=== PATIENT | female | born 1940 | race Caucasian/White ===

== ENCOUNTER 2017-03-09 06:01 | Inpatient (IN) | payer MEDICARE ==
[~2017-03-09] VITALS: Ht 167.6 cm; Wt 61.2 kg
[2017-03-09] VITALS (17 sets, daily range): BP systolic 66–122; BP diastolic 37–91; PULSE 66–127; RESP 12–34; TEMP 94.4–102; O2SAT 92–100
[~2017-03-09 06:01] MED LIST: ALPR-138 PO; AMAR2TAB PO; CARA1SUS3 PO; ENAL5TAB98 PO; FLUO20SO3 PO; LORT5TAB PO; METO5TAB PO; PREV30CA36 PO; SITA100 PO; VIST50CA PO; ZOCO80TA PO
[2017-03-09] MEDS ORDERED: IOHEXOL 350 MG/ML 10 ML VIAL (for RAD DIAG) IVCONTRAST ONE (06:02)
[2017-03-09] MEDS ORDERED: SODIUM CHLOR 0.9% 1000 ML INJ 100 ML IV ONE (06:11)
[2017-03-09] MEDS ORDERED: SODIUM CHLOR 0.9% 1000 ML INJ 1,000 ML IV ONE ×3 (06:11→17:30)
[2017-03-09] MEDS ORDERED: GENTAMICIN INJ 325 MG in SODIUM CHLORIDE 0.9% INJ 100 ML IV STA (06:11)
[2017-03-09] MEDS ORDERED: AZTREONAM INJ 1,000 MG in SODIUM CHLORIDE 0.9% INJ 100 ML IV STA (06:11)
[2017-03-09] MEDS ORDERED: VANCOMYCIN INJ 1,000 MG in SODIUM CHLOR 0.9% 250 ML INJ 250 ML IV STA (06:11)
[2017-03-09] MEDS ORDERED: ACETAMINOPHEN 325 MG TAB PO ONE (06:15)
--- NOTE | 2017-03-09 06:33 | PD ---
HPI Chief Complaint: General Weakness Time Seen by Provider: 06:10 Travel History International Travel<30 days: No Contact w/Intl Traveler<30days: No Traveled to known affect area: No History of Present Illness HPI 76yo F with PMH of frequent UTIs, DM presents to the ED with c/o dysuria, fever , nausea, abdominal pain since yesterday. States her abdominal pain in bilateral lower abdomen and intermittent and hard to describe. Denies any chest pain, sob, headache, vomiting, hematuria, or diarrhea. Pt is hard of hearing but AAOx3. PFSH Past Medical History Anxiety: Yes Diminished Hearing: Yes (BILATERAL HEARING AIDS) Diverticulitis: Yes Gastrointestinal Disorders: Yes (GASTRITIS, HEMORRHOIDS) Genitourinary: Yes (UTI) Hypertension: Yes Tetanus Vaccination: Unknown Influenza Vaccination: No Menopausal: Yes Past Surgical History Cholecystectomy: Yes Social History Alcohol Use: No Tobacco Use: Yes (1 PPD) Substance Use: No Allergies-Medications (Allergen,Severity, Reaction): Coded Allergies: Influenza Virus Vaccines (Unverified Allergy, Severe, FLU LIKE REACTIO X 2 WEEKS, 03/09/17) aspirin (Unverified Allergy, Severe, STOMACH BROWN, 03/09/17) codeine (Unverified Allergy, Severe, VOMITS, 03/09/17) penicillin G (Unverified Allergy, Unknown, 03/09/17) Reported Meds & Prescriptions Reported Meds & Active Scripts Active Reported Zolpidem (Zolpidem Tartrate) 5 Mg Tab 5-10 Mg PO HS PRN Tradjenta (Linagliptin) 5 Mg Tab 5 Mg PO DAILY Simvastatin 20 Mg Tab 20 Mg PO HS Metformin (Metformin HCl) 500 Mg Tab 500 Mg PO BIDPC With meals Lisinopril 5 Mg Tab 5 Mg PO DAILY Glimepiride 2 Mg Tab 2 Mg PO BIDAC Alprazolam 0.5 Mg Tab 0.5 Mg PO BID PRN Review of Systems Except as stated in HPI: all other systems reviewed are Neg Physical Exam Narrative GENERAL: 76yo F in mild distress. SKIN: Focused skin assessment warm/dry. HEAD: Atraumatic. Normocephalic. EYES: Pupils equal and round. No scleral icterus. No injection or drainage. ENT: No nasal bleeding or discharge. Mucous membranes pink and moist. NECK: Trachea midline. No JVD. CARDIOVASCULAR: Tachycardic in the 120s. No murmur appreciated. RESPIRATORY: No accessory muscle use. Clear to auscultation. Breath sounds equal bilaterally. GASTROINTESTINAL: Abdomen soft, +TTP LLQ. No rebound tenderness or guarding. MUSCULOSKELETAL: No obvious deformities. No clubbing. No cyanosis. No edema. NEUROLOGICAL: Awake and alert. No obvious cranial nerve deficits. Motor grossly within normal limits. Normal speech. PSYCHIATRIC: Appropriate mood and affect; insight and judgment normal. Data Data Last Documented VS Vital Signs Date Time Temp Pulse Resp B/P (MAP) Pulse Ox O2 Delivery O2 Flow Rate FiO2 03/09/17 10:38 80 18 94/51 (65) 100 Nasal Cannula 2.00 03/09/17 09:41 98.5 Orders Orders Complete Blood Count With Diff (03/09/17 06:11) Comprehensive Metabolic Panel (03/09/17 06:11) Prothrombin Time / Inr (Pt) (03/09/17 06:11) Act Partial Throm Time (Ptt) (03/09/17 06:11) Lactic Acid Sepsis Protocol (03/09/17 06:11) Lipase (03/09/17 06:11) Urinalysis - C+S If Indicated (03/09/17 06:11) Blood Culture (03/09/17 06:11) Blood Glucose (03/09/17 06:11) Ecg Monitoring (03/09/17 06:11) Iv Access Insert/Monitor (03/09/17 06:11) Oximetry (03/09/17 06:11) Oxygen Administration (03/09/17 06:11) Acetaminophen (Tylenol) (03/09/17 06:15) Ct Abd/Pel W Iv Contrast(Rout) (03/09/17 06:11) Vancomycin Inj (Vancomycin Inj) (03/09/17 06:11) Sodium Chlor 0.9% 1000 Ml Inj (Ns 1000 M (03/09/17 06:11) Sodium Chlor 0.9% 1000 Ml Inj (Ns 1000 M (03/09/17 06:11) Sodium Chlor 0.9% 1000 Ml Inj (Ns 1000 M (03/09/17 06:11) Aztreonam Inj (Azactam Inj) (03/09/17 06:11) Gentamicin Inj (Gentamicin Inj) (03/09/17 06:11) Ondansetron Inj (Zofran Inj) (03/09/17 07:00) Urine Culture (03/09/17 06:30) Electrocardiogram (03/09/17 06:10) Iohexol 350 Inj (Omnipaque 350 Inj) (03/09/17 06:02) ^ Infusion (03/09/17 ) Norepinephrine-Dextrose Drip (Levophed-D (03/09/17 08:15) Lactic Acid Sepsis Protocol (03/09/17 08:02) Chest, Single Ap (03/09/17 08:52) Norepinephrine Inj (Levophed Inj) (03/09/17 08:51) Admit To Inpatient (03/09/17 ) Code Status (03/09/17 10:19) Vital Signs (Adult) ANA LAURA.Q1H (03/09/17 10:19) Activity Bed Rest (03/09/17 10:19) Elevate Head Of Bed (03/09/17 10:19) Neuro Checks . ORDERED (03/09/17 10:19) Pantoprazole Inj (Protonix Inj) (03/09/17 12:00) Albuterol-Ipratropium Neb (Duoneb Neb) (03/09/17 10:30) Albuterol-Ipratropium Neb (Duoneb Neb) (03/09/17 10:30) Complete Blood Count With Diff (03/10/17 04:00) Comprehensive Metabolic Panel (03/10/17 04:00) Rocket Engine Component Mechanic / Telemetry ANA LAURA.Q8H (03/09/17 10:19) Heparin Inj (Heparin Inj) (03/09/17 12:00) ^ Initiate Protocol (03/09/17 10:19) Instruction (03/09/17 10:19) [facility] [place] Nursing Information (03/09/17 10:30) Chlorhexidine 2% Cloth (Chlorhexidine 2% (03/10/17 04:00) Chlorhexidine 2% Cloth (Chlorhexidine 2% (03/09/17 10:30) Mrsa Pcr Surveillance (03/09/17 10:19) Docusate Sodium-Senna (Caty-Colace) (03/09/17 21:00) Magnesium Hydroxide Liq (Milk Of Magnesi (03/09/17 10:30) Sennosides (Senokot) (03/09/17 10:30) Bisacodyl Supp (Dulcolax Supp) (03/09/17 10:30) Lactulose Liq (Lactulose Liq) (03/09/17 10:30) Inpatient Certification (03/09/17 ) Aztreonam Inj (Azactam Inj) (03/09/17 17:00) Sodium Chlor 0.9% 1000 Ml Inj (Ns 1000 M (03/09/17 10:30) Blood Glucose Goal (Criteria) (03/09/17 10:19) Hypoglycemia 70 Mg/Dl Or < (03/09/17 10:19) Notify Dr: Other (03/09/17 10:19) Glucagon Inj (Glucagon Inj) (03/09/17 10:30) Insulin Human Reg Supp Scale (Novolin R (03/09/17 12:00) Consult Urology (03/09/17 ) (Hub Use Only)Inp Phy Cons/Ref (03/09/17 ) Admit Order (Ed Use Only) (03/09/17 10:49) Urinary Catheter Insert/Apply (03/09/17 10:51) Dextrose 50% In Kali (Syr) Inj (D50w (Syr (03/09/17 12:00) Labs Laboratory Tests Test 03/09/17 06:20 03/09/17 06:30 White Blood Count 13.9 TH/MM3 Red Blood Count 4.38 MIL/MM3 Hemoglobin 12.8 GM/DL Hematocrit 37.7 % Mean Corpuscular Volume 86.0 FL Mean Corpuscular Hemoglobin 29.2 PG Mean Corpuscular Hemoglobin Concent 34.0 % Red Cell Distribution Width 13.9 % Platelet Count 227 TH/MM3 Mean Platelet Volume 7.9 FL Neutrophils (%) (Auto) 87.2 % Lymphocytes (%) (Auto) 4.1 % Monocytes (%) (Auto) 8.1 % Eosinophils (%) (Auto) 0.0 % Basophils (%) (Auto) 0.6 % Neutrophils # (Auto) 12.1 TH/MM3 Lymphocytes # (Auto) 0.6 TH/MM3 Monocytes # (Auto) 1.1 TH/MM3 Eosinophils # (Auto) 0.0 TH/MM3 Basophils # (Auto) 0.1 TH/MM3 CBC Comment DIFF FINAL Differential Comment Prothrombin Time 10.7 SEC Prothromb Time International Ratio 1.0 RATIO Activated Partial Thromboplast Time 28.7 SEC Blood Urea Nitrogen 21 MG/DL Creatinine 1.23 MG/DL Random Glucose 139 MG/DL Total Protein 7.3 GM/DL Albumin 3.4 GM/DL Calcium Level 10.0 MG/DL Alkaline Phosphatase 62 U/L Aspartate Amino Transf (AST/SGOT) 15 U/L Alanine Aminotransferase (ALT/SGPT) 20 U/L Total Bilirubin 0.6 MG/DL Sodium Level 133 MEQ/L Potassium Level 3.9 MEQ/L Chloride Level 98 MEQ/L Carbon Dioxide Level 25.7 MEQ/L Anion Gap 9 MEQ/L Estimat Glomerular Filtration Rate 43 ML/MIN Lactic Acid Level 1.7 mmol/L Lipase 108 U/L Urine Color YELLOW Urine Turbidity HAZY Urine pH 6.5 Urine Specific [place] 1.011 Urine Protein 30 mg/dL Urine Glucose (UA) NEG mg/dL Urine Ketones NEG mg/dL Urine Occult Blood MOD Urine Nitrite POS Urine Bilirubin NEG Urine Urobilinogen LESS THAN 2.0 MG/DL Urine Leukocyte Esterase LARGE Urine RBC 26 /hpf Urine WBC 118 /hpf Urine Bacteria MANY /hpf Microscopic Urinalysis Comment CATH-CULTURE IND MDM Medical Decision Making Medical Screen Exam Complete: Yes Emergency Medical Condition: Yes Interpretation(s) EKG: Sinus tachycardia at 126bpm. Normal axis. No ST segment elevation or depression. Differential Diagnosis Urosepsis vs. diverticulitis vs. pyelonephritis Narrative Course 76yo F with fever, dysuria and abdominal pain for 2 days. Pt was initially tachycardic in the 120s and febrile at 102F. Pt given acetaminophen for fever and zofran for nausea. IV was placed and sepsis work up was started. Blood cultures were drawn along with lactic acid. NS IVF x3 ordered. Empirically given vancomycin, aztreonam and gentamicin for presumed complicated urosepsis in pt with allergy to penicillin. Pt's HR improved to 100bpm after about 1 liter of NS IVF so asked nurse to hold off on the third liter for now. Will only give 2 liters now. Pt seen at the end of my shift so will sign out to next team to follow up labs, CTa/p and admit. Diagnosis Primary Impression: Pyelonephritis Admitting Information Admitting Physician Requests: Admit Sasha Trevizo DO Mar 09, 2017 06:33
[2017-03-09 06:46] LABS: AUTOMATED NEUTROPHIL # 12.1 TH/MM3 (1.8-7.7); BASOPHIL # 0.1 TH/MM3 (0-0.2); BASOPHIL % 0.6 % (0.0-2.0); HEMATOCRIT 37.7 % (35.0-46.0); HEMO FLAGS DIFF FINAL; LYMPH % 4.1 % (9.0-44.0); LYMPHOCYTE # 0.6 TH/MM3 (1.0-4.8); MEAN CORPUSCULAR HEMOGLOBIN 29.2 PG (27.0-34.0); MONO % 8.1 % (0.0-8.0); NEUT % 87.2 % (16.0-70.0); PLATELET COUNT 227 TH/MM3 (150-450); RED BLOOD COUNT 4.38 MIL/MM3 (4.00-5.30); RED CELL DISTRIBUTION WIDTH 13.9 % (11.6-17.2); WHITE BLOOD COUNT 13.9 TH/MM3 (4.0-11.0)
[2017-03-09 06:47] LABS: ALT (GPT) 20 U/L (10-53); ANION GAP 9 MEQ/L (5-15); AST (GOT) 15 U/L (15-37); BICARBONATE 25.7 MEQ/L (21.0-32.0); BLOOD UREA NITROGEN 21 MG/DL (7-18); CHLORIDE 98 MEQ/L (98-107); GLOMERULAR FILTRATION RATE 43 ML/MIN (>89); POTASSIUM 3.9 MEQ/L (3.5-5.1); SODIUM (NA) 133 MEQ/L (136-145)
[2017-03-09 06:49] LABS: BACTERIA, URINE MANY /hpf; BLOOD, URINE MOD (NEG); GLUCOSE,URINE NEG (NEG); KETONE, URINE NEG (NEG); NITRITE,URINE POS (NEG); PH, URINE 6.5 (5.0-8.5); URINE COLOR YELLOW (YELLW/STRAW)
[2017-03-09 06:49] LABS: ALKALINE PHOSPHATASE 62 U/L (45-117); TOTAL BILIRUBIN ADULT 0.6 MG/DL (0.2-1.0)
[2017-03-09 06:52] LABS: COMMENT (UR) CATH-CULTURE IND; CULTURE IF INDICATED CATH CULTURE IND
[2017-03-09 06:54] LABS: APTT (PATIENT) 28.7 SEC (24.3-30.1); PROTHROMBIN TIME - PATIENT 10.7 SEC (9.8-11.6)
[2017-03-09] MEDS ORDERED: ONDANSETRON HCL 4 MG/2 ML VIAL IV PUSH ONE (07:00)
--- NOTE | 2017-03-09 07:58 | RADRPT ---
EXAM DATE/TIME: 03/09/2017 07:16 [place] COMPARISON: No previous studies available for comparison. INDICATIONS : Left lower abdominal pain IV CONTRAST: 93 cc Omnipaque 350 (iohexol) IV ORAL CONTRAST: No oral contrast ingested. RADIATION DOSE: 5.45 CTDIvol (mGy) MEDICAL HISTORY : Hypertension. Diabetes mellitus type 2. SURGICAL HISTORY : Cholecystectomy. ENCOUNTER: Initial ACUITY: 1 day PAIN SCALE: 5/10 LOCATION: Left lower quadrant TECHNIQUE: Volumetric scanning of the abdomen and pelvis was performed. Using automated exposure control and ad justment of the mA and/or kV according to patient size, radiation dose was kept as low as reasonably achievable to obtain optimal diagnostic quality images. DICOM format image data is available electro nically for review and comparison. FINDINGS: LOWER LUNGS: Bibasilar atelectasis. No effusions. A small calcified pleural plaque involving the dome of the left hemidiaphragm. Heart normal in size. LIVER: Homogeneous density without lesion. There is no dilation of the biliary tree. Gallbladder is surgica lly absent. SPLEEN: Normal size without lesion. PANCREAS: Within normal limits. KIDNEYS: There is stranding surrounding the left kidney. The left kidney shows mild hydronephrosis and hydrour eter. No renal or ureteral stones. Right kidney is unremarkable. ADRENAL GLANDS: Within normal limits. VASCULAR: There is no aortic aneurysm. BOWEL/MESENTERY: The stomach, small bowel, and colon demonstrate no acute abnormality. There is no free intraperitone al air or fluid. ABDOMINAL WALL: Within normal limits. RETROPERITONEUM: There is no lymphadenopathy. BLADDER: No wall thickening or mass. REPRODUCTIVE: Within normal limits. INGUINAL: There is no lymphadenopathy or hernia. MUSCULOSKELETAL: Within normal limits for patient age. CONCLUSION: 1. Acute inflammatory process involving the left kidney with hydronephrosis and mild hydroureter. I s ee no stones. Differential diagnostic considerations would include a recently passed stone versus penny lonephritis. Followup imaging to document resolution is suggested. 2. Colonic diverticulosis without acute inflammation. 3. Prior cholecystectomy. 4. Small calcified pleural plaque involving the left lung base. This can be seen in asbestos exposure . Sean Arzola Jr., MD on March 09, 2017 at 7:33 Board Certified Radiologist. This report was verified electronically.
[2017-03-09] MEDS ORDERED: NOREPINEPHRINE 4 MG/4 ML AMP ONE (08:51)
--- NOTE | 2017-03-09 08:56 | PD ---
Physical Exam Date Seen by Provider: Mar 09, 2017 Data Data Last Documented VS Vital Signs Date Time Temp Pulse Resp B/P (MAP) Pulse Ox O2 Delivery O2 Flow Rate FiO2 03/09/17 10:38 80 18 94/51 (65) 100 Nasal Cannula 2.00 03/09/17 09:41 98.5 Orders Orders Complete Blood Count With Diff (03/09/17 06:11) Comprehensive Metabolic Panel (03/09/17 06:11) Prothrombin Time / Inr (Pt) (03/09/17 06:11) Act Partial Throm Time (Ptt) (03/09/17 06:11) Lactic Acid Sepsis Protocol (03/09/17 06:11) Lipase (03/09/17 06:11) Urinalysis - C+S If Indicated (03/09/17 06:11) Blood Culture (03/09/17 06:11) Blood Glucose (03/09/17 06:11) Ecg Monitoring (03/09/17 06:11) Iv Access Insert/Monitor (03/09/17 06:11) Oximetry (03/09/17 06:11) Oxygen Administration (03/09/17 06:11) Acetaminophen (Tylenol) (03/09/17 06:15) Ct Abd/Pel W Iv Contrast(Rout) (03/09/17 06:11) Vancomycin Inj (Vancomycin Inj) (03/09/17 06:11) Sodium Chlor 0.9% 1000 Ml Inj (Ns 1000 M (03/09/17 06:11) Sodium Chlor 0.9% 1000 Ml Inj (Ns 1000 M (03/09/17 06:11) Sodium Chlor 0.9% 1000 Ml Inj (Ns 1000 M (03/09/17 06:11) Aztreonam Inj (Azactam Inj) (03/09/17 06:11) Gentamicin Inj (Gentamicin Inj) (03/09/17 06:11) Ondansetron Inj (Zofran Inj) (03/09/17 07:00) Urine Culture (03/09/17 06:30) Electrocardiogram (03/09/17 06:10) Iohexol 350 Inj (Omnipaque 350 Inj) (03/09/17 06:02) ^ Infusion (03/09/17 ) Norepinephrine-Dextrose Drip (Levophed-D (03/09/17 08:15) Lactic Acid Sepsis Protocol (03/09/17 08:02) Chest, Single Ap (03/09/17 08:52) Norepinephrine Inj (Levophed Inj) (03/09/17 08:51) Admit To Inpatient (03/09/17 ) Code Status (03/09/17 10:19) Vital Signs (Adult) ANA LAURA.Q1H (03/09/17 10:19) Activity Bed Rest (03/09/17 10:19) Elevate Head Of Bed (03/09/17 10:19) Neuro Checks . ORDERED (03/09/17 10:19) Pantoprazole Inj (Protonix Inj) (03/09/17 10:30) Albuterol-Ipratropium Neb (Duoneb Neb) (03/09/17 10:30) Albuterol-Ipratropium Neb (Duoneb Neb) (03/09/17 10:30) Complete Blood Count With Diff (03/10/17 04:00) Comprehensive Metabolic Panel (03/10/17 04:00) Reimbursement Specialist / Telemetry ANA LAURA.Q8H (03/09/17 10:19) Heparin Inj (Heparin Inj) (03/09/17 10:30) ^ Initiate Protocol (03/09/17 10:19) Instruction (03/09/17 10:19) [facility] (03/09/17 10:30) Chlorhexidine 2% Cloth (Chlorhexidine 2% (03/10/17 04:00) Chlorhexidine 2% Cloth (Chlorhexidine 2% (03/09/17 10:30) Mrsa Pcr Surveillance (03/09/17 10:19) Docusate Sodium-Senna (Caty-Colace) (03/09/17 21:00) Magnesium Hydroxide Liq (Milk Of Magnesi (03/09/17 10:30) Sennosides (Senokot) (03/09/17 10:30) Bisacodyl Supp (Dulcolax Supp) (03/09/17 10:30) Lactulose Liq (Lactulose Liq) (03/09/17 10:30) Inpatient Certification (03/09/17 ) Aztreonam Inj (Azactam Inj) (03/09/17 10:30) Sodium Chlor 0.9% 1000 Ml Inj (Ns 1000 M (03/09/17 10:30) Blood Glucose Goal (Criteria) (03/09/17 10:19) Hypoglycemia 70 Mg/Dl Or < (03/09/17 10:19) Notify Dr: Other (03/09/17 10:19) Dextrose 50% In Kali (Vial) Inj (D50w (Vi (03/09/17 10:30) Glucagon Inj (Glucagon Inj) (03/09/17 10:30) Insulin Human Reg Supp Scale (Novolin R (03/09/17 10:30) Consult Urology (03/09/17 ) (Hub Use Only)Inp Phy Cons/Ref (03/09/17 ) Admit Order (Ed Use Only) (03/09/17 10:49) Urinary Catheter Insert/Apply (03/09/17 10:51) Labs Laboratory Tests Test 03/09/17 06:20 03/09/17 06:30 White Blood Count 13.9 TH/MM3 Red Blood Count 4.38 MIL/MM3 Hemoglobin 12.8 GM/DL Hematocrit 37.7 % Mean Corpuscular Volume 86.0 FL Mean Corpuscular Hemoglobin 29.2 PG Mean Corpuscular Hemoglobin Concent 34.0 % Red Cell Distribution Width 13.9 % Platelet Count 227 TH/MM3 Mean Platelet Volume 7.9 FL Neutrophils (%) (Auto) 87.2 % Lymphocytes (%) (Auto) 4.1 % Monocytes (%) (Auto) 8.1 % Eosinophils (%) (Auto) 0.0 % Basophils (%) (Auto) 0.6 % Neutrophils # (Auto) 12.1 TH/MM3 Lymphocytes # (Auto) 0.6 TH/MM3 Monocytes # (Auto) 1.1 TH/MM3 Eosinophils # (Auto) 0.0 TH/MM3 Basophils # (Auto) 0.1 TH/MM3 CBC Comment DIFF FINAL Differential Comment Prothrombin Time 10.7 SEC Prothromb Time International Ratio 1.0 RATIO Activated Partial Thromboplast Time 28.7 SEC Blood Urea Nitrogen 21 MG/DL Creatinine 1.23 MG/DL Random Glucose 139 MG/DL Total Protein 7.3 GM/DL Albumin 3.4 GM/DL Calcium Level 10.0 MG/DL Alkaline Phosphatase 62 U/L Aspartate Amino Transf (AST/SGOT) 15 U/L Alanine Aminotransferase (ALT/SGPT) 20 U/L Total Bilirubin 0.6 MG/DL Sodium Level 133 MEQ/L Potassium Level 3.9 MEQ/L Chloride Level 98 MEQ/L Carbon Dioxide Level 25.7 MEQ/L Anion Gap 9 MEQ/L Estimat Glomerular Filtration Rate 43 ML/MIN Lactic Acid Level 1.7 mmol/L Lipase 108 U/L Urine Color YELLOW Urine Turbidity HAZY Urine pH 6.5 Urine Specific [place] 1.011 Urine Protein 30 mg/dL Urine Glucose (UA) NEG mg/dL Urine Ketones NEG mg/dL Urine Occult Blood MOD Urine Nitrite POS Urine Bilirubin NEG Urine Urobilinogen LESS THAN 2.0 MG/DL Urine Leukocyte Esterase LARGE Urine RBC 26 /hpf Urine WBC 118 /hpf Urine Bacteria MANY /hpf Microscopic Urinalysis Comment CATH-CULTURE IND MDM Medical Record Reviewed: Yes Supervised Visit with LIDIA: No Interpretation(s) Vital Signs Date Time Temp Pulse Resp B/P (MAP) Pulse Ox O2 Delivery O2 Flow Rate FiO2 03/09/17 10:38 80 18 94/51 (65) 100 Nasal Cannula 2.00 03/09/17 10:00 94 20 98/55 (69) 100 Nasal Cannula 2.00 03/09/17 09:41 98.5 85 34 122/91 (101) 96 Nasal Cannula 2.00 03/09/17 09:27 70 14 98/66 (77) 98 2.00 03/09/17 09:13 98.4 66 12 66/37 (47) 92 Nasal Cannula 2.00 03/09/17 09:08 84 63/40 03/09/17 08:13 85 17 73/51 (58) 96 Nasal Cannula 2.00 03/09/17 07:08 99.2 92 16 89/50 (63) 100 Room Air 03/09/17 06:50 95 Nasal Cannula 2.00 03/09/17 06:39 102 18 101/52 (68) 96 Room Air 03/09/17 06:36 98 Room Air 03/09/17 06:08 131 18 96 Room Air 03/09/17 06:04 102.0 127 20 101/57 (72) 96 Laboratory Tests Test 03/09/17 06:20 03/09/17 06:30 White Blood Count 13.9 TH/MM3 (4.0-11.0) Red Blood Count 4.38 MIL/MM3 (4.00-5.30) Hemoglobin 12.8 GM/DL (11.6-15.3) Hematocrit 37.7 % (35.0-46.0) Mean Corpuscular Volume 86.0 FL (80.0-100.0) Mean Corpuscular Hemoglobin 29.2 PG (27.0-34.0) Mean Corpuscular Hemoglobin Concent 34.0 % (32.0-36.0) Red Cell Distribution Width 13.9 % (11.6-17.2) Platelet Count 227 TH/MM3 (150-450) Mean Platelet Volume 7.9 FL (7.0-11.0) Neutrophils (%) (Auto) 87.2 % (16.0-70.0) Lymphocytes (%) (Auto) 4.1 % (9.0-44.0) Monocytes (%) (Auto) 8.1 % (0.0-8.0) Eosinophils (%) (Auto) 0.0 % (0.0-4.0) Basophils (%) (Auto) 0.6 % (0.0-2.0) Neutrophils # (Auto) 12.1 TH/MM3 (1.8-7.7) Lymphocytes # (Auto) 0.6 TH/MM3 (1.0-4.8) Monocytes # (Auto) 1.1 TH/MM3 (0-0.9) Eosinophils # (Auto) 0.0 TH/MM3 (0-0.4) Basophils # (Auto) 0.1 TH/MM3 (0-0.2) CBC Comment DIFF FINAL Differential Comment Prothrombin Time 10.7 SEC (9.8-11.6) Prothromb Time International Ratio 1.0 RATIO Activated Partial Thromboplast Time 28.7 SEC (24.3-30.1) Blood Urea Nitrogen 21 MG/DL (7-18) Creatinine 1.23 MG/DL (0.50-1.00) Random Glucose 139 MG/DL (74-106) Total Protein 7.3 GM/DL (6.4-8.2) Albumin 3.4 GM/DL (3.4-5.0) Calcium Level 10.0 MG/DL (8.5-10.1) Alkaline Phosphatase 62 U/L (45-117) Aspartate Amino Transf (AST/SGOT) 15 U/L (15-37) Alanine Aminotransferase (ALT/SGPT) 20 U/L (10-53) Total Bilirubin 0.6 MG/DL (0.2-1.0) Sodium Level 133 MEQ/L (136-145) Potassium Level 3.9 MEQ/L (3.5-5.1) Chloride Level 98 MEQ/L (98-107) Carbon Dioxide Level 25.7 MEQ/L (21.0-32.0) Anion Gap 9 MEQ/L (5-15) Estimat Glomerular Filtration Rate 43 ML/MIN (>89) Lactic Acid Level 1.7 mmol/L (0.4-2.0) Lipase 108 U/L (73-393) Urine Color YELLOW (YELLW/STRAW) Urine Turbidity HAZY (CLEAR) Urine pH 6.5 (5.0-8.5) Urine Specific [place] 1.011 (1.002-1.035) Urine Protein 30 mg/dL (NEG-TRACE) Urine Glucose (UA) NEG mg/dL (NEG) Urine Ketones NEG mg/dL (NEG) Urine Occult Blood MOD (NEG) Urine Nitrite POS (NEG) Urine Bilirubin NEG (NEG) Urine Urobilinogen LESS THAN 2.0 MG/DL (LESS Urine Leukocyte Esterase LARGE (NEG) Urine RBC 26 /hpf (0-3) Urine WBC 118 /hpf (0-5) Urine Bacteria MANY /hpf (NONE) Microscopic Urinalysis Comment CATH-CULTURE IND Last Impressions Chest X-Ray 03/09/17 0852 Signed Impressions: Service Date/Time: Thursday, March 09, 2017 08:53 - CONCLUSION: Minimal parenchymal changes left base. There is no pneumothorax. Tomer Nolasco MD FACR Abdomen/Pelvis CT 03/09/17 0611 Signed Impressions: Service Date/Time: Thursday, March 09, 2017 07:16 - CONCLUSION: 1. Acute inflammatory process involving the left kidney with hydronephrosis and mild hydroureter. I see no stones. Differential diagnostic considerations would include a recently passed stone versus pyelonephritis. Followup imaging to document resolution is suggested. 2. Colonic diverticulosis without acute inflammation. 3. Prior cholecystectomy. 4. Small calcified pleural plaque involving the left lung base. This can be seen in asbestos exposure. Sean Arzola Jr., MD Narrative Course Patient signed out to me at change of shift by Dr. Trevizo. Patient pending CT of abdomen and pelvis and then admission to hospital for sepsis Patient is a 76-year-old female who presents to emergency room with complaints of dysuria, fever, nausea and left lower abdominal pain since 4:30 AM this morning. She reports that she woke up this morning to use the restroom and felt weak. Reports that she was unable to move without assist from her . Vital Signs Date Time Temp Pulse Resp B/P (MAP) Pulse Ox O2 Delivery O2 Flow Rate FiO2 03/09/17 08:13 85 17 73/51 (58) 96 Nasal Cannula 2.00 03/09/17 07:08 99.2 92 16 89/50 (63) 100 Room Air 03/09/17 06:50 95 Nasal Cannula 2.00 03/09/17 06:39 102 18 101/52 (68) 96 Room Air 03/09/17 06:36 98 Room Air 03/09/17 06:08 131 18 96 Room Air 03/09/17 06:04 102.0 127 20 101/57 (72) 96 CBC & BMP Diagram 03/09/17 06:20 Total Protein 7.3, Albumin 3.4, Calcium Level 10.0, Alkaline Phosphatase 62, Aspartate Amino Transf (AST/SGOT) 15, Alanine Aminotransferase (ALT/SGPT) 20, Total Bilirubin 0.6 Lactic acid 1.7 UA positive for nitrates, large leuk esterase, 118 white blood cells, many bacteria Last Impressions Abdomen/Pelvis CT 03/09/17 0611 Signed Impressions: Service Date/Time: Thursday, March 09, 2017 07:16 - CONCLUSION: 1. Acute inflammatory process involving the left kidney with hydronephrosis and mild hydroureter. I see no stones. Differential diagnostic considerations would include a recently passed stone versus pyelonephritis. Followup imaging to document resolution is suggested. 2. Colonic diverticulosis without acute inflammation. 3. Prior cholecystectomy. 4. Small calcified pleural plaque involving the left lung base. This can be seen in asbestos exposure. Sean Arzola Jr., MD CT of abdomen and pelvis shows left-sided hydronephrosis and mild hydroureter. She has been pancultured, she has been given Azactam, gentamicin as well as vancomycin. After 2.5 L of IV fluids, patient's blood pressure dropped to 73/51. Patient received her 30 cc/kg bolus of IV fluids. Patient with septic shock and required central line. Patient gave written as well as verbal consent. Central line was placed without any difficulty. Levophed started after central line placement. BP stable with Levophed at this time case reviewed with dr. mcclure who accepts pt to service Critical Care Narrative Aggregate critical care time was 45 minutes. Time to perform other separately billable procedures was not included in the critical care time. My time did not include minutes spent treating any other patients simultaneously or on activities that did not directly contribute to the patient's treatment. The services I provided to this patient were to treat and/or prevent clinically significant deterioration that could result in: , decompensation, deterioration I provided critical care services requiring my management, as noted below: Chart data review, documentation time, medication orders and management, vital sign assessments/reviewing monitor data, ordering and reviewing lab tests, ordering and interpreting/reviewing x-rays and diagnostic studies, care of the patient and discussion of the patient with the admitting physicians. Procedures Procedure Narrative CENTRAL VENOUS LINE: The site was prepped with Betadine and sterilely draped. It was infiltrated with 1% lidocaine plain. The deep vein was cannulated using normal Seldinger technique. A triple lumen central line was placed in the right IJ site and secured with simple interrupted suture. The site was sterilely dressed. The patient tolerated the procedure well. Diagnosis Primary Impression: Septic shock Additional Impression: Pyelonephritis Admitting Information Admitting Physician Requests: Arline Slater DO Mar 09, 2017 08:56
[2017-03-09] MEDS: NOREPINEPHRINE-DEXTROSE DRIP 250 ML IV PRN ×2 (09:08→23:09)
--- NOTE | 2017-03-09 09:12 | RADRPT ---
EXAM DATE/TIME: 03/09/2017 08:53 [place] COMPARISON: No previous studies available for comparison. INDICATIONS : Central line placement. MEDICAL HISTORY : None. SURGICAL HISTORY : None. ENCOUNTER: Initial ACUITY: 1 day PAIN SCORE: 0/10 LOCATION: Bilateral chest FINDINGS: Minimal parenchymal changes left base.. Right lung is clear. Line in good position. The cardiomedia stinal contours are unremarkable. Osseous structures are intact. CONCLUSION: Minimal parenchymal changes left base. There is no pneumothorax. Tomer Nolasco MD FACR on March 09, 2017 at 9:09 Board Certified Radiologist. This report was verified electronically.
[2017-03-09] MEDS ORDERED: ZOLP5TAB3 PO (10:03)
[2017-03-09] MEDS ORDERED: ALPR0.5T3 PO (10:03)
[2017-03-09] MEDS ORDERED: TRAD5TAB PO (10:03)
[2017-03-09] MEDS ORDERED: SIMV20TA PO (10:03)
[2017-03-09] MEDS ORDERED: METF500T PO (10:03)
[2017-03-09] MEDS ORDERED: GLIM2TAB PO (10:03)
[2017-03-09] MEDS ORDERED: LISI-519 PO (10:03)
[2017-03-09] MEDS: RESP: ALBUTEROL 2.5 MG/IPRATROPIUM 0.5 MG NEB (SCH) INH ×3 (10:30→20:20)
[2017-03-09] MEDS ORDERED: MISCELLANEOUS NURSING INFORMATION XX SCH (10:30)
[2017-03-09] MEDS ORDERED: CHLORHEXIDINE GLUCONATE 2 % 1 PACK (2 CLOTHS) TOP PRN (10:30)
[2017-03-09] MEDS ORDERED: RESP: ALBUTEROL 2.5 MG/IPRATROPIUM 0.5 MG NEB (PRN) INH (10:30)
[2017-03-09] MEDS ORDERED: SENNOSIDES 8.6 MG TAB PO PRN (10:30)
[2017-03-09] MEDS ORDERED: LACTULOSE SYRUP 20 GM/30 ML CUP PO PRN (10:30)
[2017-03-09] MEDS ORDERED: MAGNESIUM HYDROXIDE SUSP 30 ML CUP PO PRN (10:30)
[2017-03-09] MEDS ORDERED: BISACODYL 10 MG SUPP RECTAL PRN (10:30)
[2017-03-09] MEDS ORDERED: GLUCAGON 1 MG/ML VIAL OTHER PRN (10:30)
[2017-03-09] MEDS ORDERED: DEXTROSE 50% IN WATER 50 ML SYRINGE IV PRN (12:00)
[2017-03-09] MEDS: INSULIN NovoLIN REGULAR SUPPLEMENTAL SCALE SQ SCH ×2 (12:00→18:00)
[2017-03-09] MEDS: HEPARIN SODIUM - SQ 10,000 UNITS/ML VIAL SQ SCH (12:28)
[2017-03-09] MEDS: SODIUM CHLOR 0.9% 1000 ML INJ 1,000 ML IV SCH ×2 (12:28→18:17)
[2017-03-09] MEDS: PANTOPRAZOLE SODIUM 40 MG VIAL IV SCH (12:28)
--- NOTE | 2017-03-09 13:01 | PD.CONS ---
[facility] Service Urology Consult Requested By Dr. Conrad Primary Care Physician Lenin Sultana M.D. Diagnosis: History of Present Illness 76-year-old female with no prior history nephrolithiasis who presented to the emergency room with complaints of abdominal pain, nausea, and fever. Patient reports that her pain was located to both sides of her lower abdomen as well as the left flank. Symptoms began approximately 2 days prior to admission. Upon arrival to the emergency room the patient was noted to be tachycardic and febrile and was immediately started on antibiotic therapy and supportive care. A CT scan study was performed of the abdomen and pelvis that demonstrated mild left sided hydroureteronephrosis. No definitive obstructing ureteral or renal stones were noted. At the time of consultation the patient was resting quietly in bed and denied any symptoms. She did have an indwelling Shepard catheter which was draining clear yellow urine. Patient denies a history of similar symptoms in the past. She denies gross hematuria. Review of Systems Constitutional: COMPLAINS OF: Fever, Chills Cardiovascular: DENIES: Chest pain Gastrointestinal: COMPLAINS OF: Abdominal pain (bilateral lower abdomen), Nausea Genitourinary: DENIES: Hematuria Musculoskeletal: COMPLAINS OF: Back pain (left flank) Except as stated in HPI: all other systems reviewed are Neg Past Family Social History Past Medical History Diverticulitis Gastritis Hemorrhoids Anxiety Past Surgical History Status post cholecystectomy Reported Medications Refer to EMR Allergies: Coded Allergies: Influenza Virus Vaccines (Unverified Allergy, Severe, FLU LIKE REACTIO X 2 WEEKS, 03/09/17) aspirin (Unverified Allergy, Severe, STOMACH BROWN, 03/09/17) codeine (Unverified Allergy, Severe, VOMITS, 03/09/17) penicillin G (Unverified Allergy, Unknown, 03/09/17) Active Ordered Medications Refer to EMR Family History Reviewed and noncontributory Social History Positive tobacco use of one pack per day Denies alcohol or history of illicit drug usage Physical Exam Vital Signs Date Time Temp Pulse Resp B/P (MAP) Pulse Ox O2 Delivery O2 Flow Rate FiO2 03/09/17 12:30 96 100/58 03/09/17 12:01 03/09/17 11:16 82 98/55 (69) 03/09/17 11:00 100 Nasal Cannula 2.00 03/09/17 10:38 80 18 94/51 (65) 100 Nasal Cannula 2.00 03/09/17 10:00 94 20 98/55 (69) 100 Nasal Cannula 2.00 03/09/17 09:41 98.5 85 34 122/91 (101) 96 Nasal Cannula 2.00 03/09/17 09:27 70 14 98/66 (77) 98 2.00 03/09/17 09:13 98.4 66 12 66/37 (47) 92 Nasal Cannula 2.00 03/09/17 09:08 84 63/40 03/09/17 08:13 85 17 73/51 (58) 96 Nasal Cannula 2.00 03/09/17 07:08 99.2 92 16 89/50 (63) 100 Room Air 03/09/17 06:50 95 Nasal Cannula 2.00 03/09/17 06:39 102 18 101/52 (68) 96 Room Air 03/09/17 06:36 98 Room Air 03/09/17 06:08 131 18 96 Room Air 03/09/17 06:04 102.0 127 20 101/57 (72) 96 Physical Exam GENERAL: This is a well-nourished, well-developed patient, in no apparent distress. SKIN: No rashes, ecchymoses or lesions. Cool and dry. HEAD: Atraumatic. Normocephalic. No temporal or scalp tenderness. EYES: Pupils equal round and reactive. Extraocular motions intact. No scleral icterus. No injection or drainage. ENT: Nose without bleeding, purulent drainage or septal hematoma. Throat without erythema, tonsillar hypertrophy or exudate. Uvula midline. Airway patent. NECK: Trachea midline. No JVD or lymphadenopathy. Supple, nontender, no meningeal signs. GASTROINTESTINAL: Abdomen soft, non-tender, nondistended. No hepato-splenomegaly , or palpable masses. No guarding. GENITOURINARY: No CVA tenderness. Indwelling Shepard draining clear yellow urine MUSCULOSKELETAL: Extremities without clubbing, cyanosis, or edema. No joint tenderness, effusion, or edema noted. No calf tenderness. Negative Homans sign bilaterally. NEUROLOGICAL: Awake and alert. Cranial nerves II through XII intact. Motor and sensory grossly within normal limits. Five out of 5 muscle strength in all muscle groups. Normal speech. Lab results reviewed: Yes Laboratory Tests Test 03/09/17 06:20 03/09/17 06:30 White Blood Count 13.9 Red Blood Count 4.38 Hemoglobin 12.8 Hematocrit 37.7 Mean Corpuscular Volume 86.0 Mean Corpuscular Hemoglobin 29.2 Mean Corpuscular Hemoglobin Concent 34.0 Red Cell Distribution Width 13.9 Platelet Count 227 Mean Platelet Volume 7.9 Neutrophils (%) (Auto) 87.2 Lymphocytes (%) (Auto) 4.1 Monocytes (%) (Auto) 8.1 Eosinophils (%) (Auto) 0.0 Basophils (%) (Auto) 0.6 Neutrophils # (Auto) 12.1 Lymphocytes # (Auto) 0.6 Monocytes # (Auto) 1.1 Eosinophils # (Auto) 0.0 Basophils # (Auto) 0.1 CBC Comment DIFF FINAL Differential Comment Prothrombin Time 10.7 Prothromb Time International Ratio 1.0 Activated Partial Thromboplast Time 28.7 Blood Urea Nitrogen 21 Creatinine 1.23 Random Glucose 139 Total Protein 7.3 Albumin 3.4 Calcium Level 10.0 Alkaline Phosphatase 62 Aspartate Amino Transf (AST/SGOT) 15 Alanine Aminotransferase (ALT/SGPT) 20 Total Bilirubin 0.6 Sodium Level 133 Potassium Level 3.9 Chloride Level 98 Carbon Dioxide Level 25.7 Anion Gap 9 Estimat Glomerular Filtration Rate 43 Lactic Acid Level 1.7 Lipase 108 Urine Color YELLOW Urine Turbidity HAZY Urine pH 6.5 Urine Specific Elizabeth 1.011 Urine Protein 30 Urine Glucose (UA) NEG Urine Ketones NEG Urine Occult Blood MOD Urine Nitrite POS Urine Bilirubin NEG Urine Urobilinogen LESS THAN 2.0 Urine Leukocyte Esterase LARGE Urine RBC 26 Urine WBC 118 Urine Bacteria MANY Microscopic Urinalysis Comment CATH-CULTURE IND Date/Time Source Procedure Growth Status 03/09/17 06:25 Blood Peripheral Aerobic Blood Culture Pending Received 03/09/17 06:25 Blood Peripheral Anaerobic Blood Culture Pending Received 03/09/17 06:30 Urine Catheterized Urine Urine Culture Pending Received Result Diagram: 03/09/1761903/09/[id number] Personally reviewed images: Yes Imaging Last Impressions Chest X-Ray 03/09/17 0852 Signed Impressions: Service Date/Time: Thursday, March 09, 2017 08:53 - CONCLUSION: Minimal parenchymal changes left base. There is no pneumothorax. Tomer Nolasco MD FACR Abdomen/Pelvis CT 03/09/17 0611 Signed Impressions: Service Date/Time: Thursday, March 09, 2017 07:16 - CONCLUSION: 1. Acute inflammatory process involving the left kidney with hydronephrosis and mild hydroureter. I see no stones. Differential diagnostic considerations would include a recently passed stone versus pyelonephritis. Followup imaging to document resolution is suggested. 2. Colonic diverticulosis without acute inflammation. 3. Prior cholecystectomy. 4. Small calcified pleural plaque involving the left lung base. This can be seen in asbestos exposure. Sean Arzola Jr., MD Assessment and Plan Assessment and Plan Urologic impression: #1 mild left sided hydroureteronephrosis possibly secondary to recent stone passage #2 urinary tract infection related to recent left sided renal obstruction Recommendations: #1 agree with present antibiotic and supportive therapy #2 follow up on urine culture results and adjust antibiotics accordingly #3 renal ultrasound in 48 hours to reassess the upper tracts Len Quiles MD Mar 09, 2017 13:01
[2017-03-09] MEDS: AZTREONAM INJ 1,000 MG in SODIUM CHLORIDE 0.9% INJ 100 ML IV SCH (16:10)
--- NOTE | 2017-03-09 16:24 | MH ---
cc: VERONIKA GREWAL M.D. DATE OF ADMISSION: 03/09/2017 DATE OF : 1940 HISTORY: The patient is a 76-year-old female with past medical history of recurrent UTI as diabetes mellitus, hyperlipidemia who presented to [facility] ED with complaints of dysuria, fever, Generalized weakness and feeling cold. She also reports some abdominal pain with constipation but denies any nausea, vomiting. In addition she denies any chest pain, shortness of breath, cough or any constitutional symptoms. On arrival to the ER she was hypotensive and had a temperature of 102.0. Her laboratory data revealed leukocytosis with a WBC of 13.9 and mild acute kidney injury with creatinine level 1.23. Her urinalysis was grossly positive for UTI where it showed positive nitrites, leukocyte esterase [address] scan of abdomen and pelvis obtained which showed acute inflammatory process involving left kidney with hydronephrosis and mild hydroureter. Also colonic diverticulosis without acute inflammation noted and small calcified pleural plaque involving the left lung base. In the ER she was given about to 1/2 liter of IV fluids and a right IJ central line was placed. The patient received HG gentamicin, vancomycin in the ER. When seen she is on 2 liters oxygen with good saturation and a current blood pressure of 104/55. Her lactic acid level measured at 1.7. PAST MEDICAL HISTORY: 1. Past medical history significant for 2. Diabetes mellitus 3. Hyperlipidemia 4. Diabetic neuropathy 5. History of gastritis. PAST SURGICAL HISTORY Previous cholecystectomy. ALLERGIES PENICILLIN CODEINE ASPIRIN INFLUENZA VIRUS VACCINES MEDICATIONS 1. Simvastatin. 2. Lisinopril. 3. Xanax. 4. Metformin. 5. Glimepiride FAMILY HISTORY: Family history noncontributory. REVIEW OF SYSTEMS As per HPI. Rest of the system unremarkable. PHYSICAL EXAMINATION: IN GENERAL: Physical exam 76-year-old female lying in bed in no acute respiratory distress. VITAL SIGNS: Temperature 102.0 at 06:00 a.m. now afebrile, pulse of 78, blood pressure 104/55, saturation 100% 2 liters oxygen. HEAD, EYES, EARS, NOSE, AND THROAT: Atraumatic, normocephalic pupil equal and active to accommodation, extraocular muscles intact, Conjunctiva pink. Nonicteric sclerae. Oral mucosa within normal limits. NECK: Supple. No JVD, adenopathy or thyromegaly. Trachea midline. CARDIOVASCULAR SYSTEM: Regular rate and rhythm. Normal S1-S2. No murmurs, rubs or gallops noted. LUNGS: Pulmonary exam bilateral equal entry. No rales or wheezing. ABDOMEN: Soft, nontender, no distension. Positive bowel sounds. EXTREMITIES: No cyanosis, clubbing or edema. NEUROLOGIC: No focal sensory deficit. LABORATORY DATA Sodium of 33, potassium 3.9, chloride 98, CO2 25, BUN 21, creatinine 1.23, glucose 139, lactic acid 1.7. WBC 13.9, hemoglobin 12.8, hematocrit 37, platelet count 227. RADIOGRAPHY Chest x-ray In the ER showed minimal parenchymal changes left base. CT abdomen, pelvis showed acute inflammatory process involving left kidney with hydronephrosis and mild hydroureter. IMPRESSION 1. Sepsis. 2. Urinary tract infection. 3. Left-sided hydronephrosis. 4. Mild acute kidney injury. 5. Rule out pyelonephritis. 6. History of recurrent UTI. 7. Leukocytosis 8. Diabetes mellitus. 9. Hyperlipidemia. RECOMMENDATIONS 1. The patient is awake, alert avoid any sedatives. 2. Oxygen p.r.n. to maintain sats above 92%. 3. Bronchodilators in the form of DuoNeb q. 6+ q. two p.r.n. 4. Shortness of breath. 5. Monitor heart rate and blood pressure closely and maintain MAP greater 65 mmHg. Lactic acid level measured at 1.2. 6. She was given a 2.5 liters of crystalloids. Continue with maintenance fluids NS at 125 an hour. 7. Monitor renal function Is and Os and electrolyte replacement as needed. 8. IV fluids as stated above. 9. I will consult urology service for left-sided hydronephrosis and recurrent UTI. 10. Keep n.p.o. for now and place on Protonix 40 mg IV daily for GI prophylaxis. 11. Continue with broad-spectrum antibiotics in the form of Aztreonam and monitor for signs of infections which include fever and WBC. She was given aztreonam and gentamicin and vancomycin in the ER. I will follow up on blood cultures and urine culture. 12. Monitor CBC. 13. Place on sliding scale insulin with Accu-Chek q. 6-hour for glycemic control. 14. Gastrointestinal and deep venous thrombosis prophylaxis with Protonix and heparin Subcu respectively. 15. Further recommendations will be based on hospital course. Critical care time; Level three. MD JUDITH Villegas/carmina /11:36 AM /4:04 PM
--- NOTE | 2017-03-09 20:31 | EKG ---
Date Performed: 03/09/2017 Time Performed: 06:10:03 PTAGE: 76 years EKG: SINUS TACHYCARDIA WITH OCCASIONAL SUPRAVENTRICULAR PREMATURE COMPLEXES MINIMAL ST DEPRESSIO N ABNORMAL RHYTHM ECG PREVIOUS TRACING : 06/20/1994 12.15 Compared to the previous tracing, now in sinus tachycardia DOCTOR: Ruddy Rowland Interpretating Date/Time 03/09/2017 20:28:56
[2017-03-10] VITALS (20 sets, daily range): BP systolic 99–135; BP diastolic 53–67; PULSE 72–97; RESP 20–43; TEMP 99.2–99.5; O2SAT 79–98
[2017-03-10] MEDS: SODIUM CHLOR 0.9% 1000 ML INJ 1,000 ML IV SCH ×3 (00:38→10:43)
[2017-03-10] MEDS: AZTREONAM INJ 1,000 MG in SODIUM CHLORIDE 0.9% INJ 100 ML IV SCH ×2 (00:39→09:00)
[2017-03-10] MEDS: HEPARIN SODIUM - SQ 10,000 UNITS/ML VIAL SQ SCH ×2 (00:40→10:44)
[2017-03-10] MEDS: RESP: ALBUTEROL 2.5 MG/IPRATROPIUM 0.5 MG NEB (SCH) INH ×4 (03:33→20:40)
[2017-03-10] MEDS: CHLORHEXIDINE GLUCONATE 2 % 1 PACK (2 CLOTHS) TOP SCH (04:00)
[2017-03-10 05:29] LABS: AUTOMATED NEUTROPHIL # 12.4 TH/MM3 (1.8-7.7); BASOPHIL % 0.2 % (0.0-2.0); HEMATOCRIT 30.3 % (35.0-46.0); HEMO FLAGS DIFF FINAL; LYMPH % 6.6 % (9.0-44.0); MEAN CELL VOLUME 86.6 FL (80.0-100.0); MEAN CORPUSCULAR HEMOGLOBIN 29.9 PG (27.0-34.0); MEAN CORPUSCULAR HGB CONC 34.5 % (32.0-36.0); MONO % 8.2 % (0.0-8.0); PLATELET COUNT 204 TH/MM3 (150-450); RED BLOOD COUNT 3.49 MIL/MM3 (4.00-5.30); WHITE BLOOD COUNT 14.6 TH/MM3 (4.0-11.0)
[2017-03-10] MEDS: INSULIN NovoLIN REGULAR SUPPLEMENTAL SCALE SQ SCH ×4 (06:00→18:00)
[2017-03-10 07:10] LABS: ALKALINE PHOSPHATASE 63 U/L (45-117); ALT (GPT) 32 U/L (10-53); ANION GAP 6 MEQ/L (5-15); AST (GOT) 34 U/L (15-37); BICARBONATE 23.6 MEQ/L (21.0-32.0); BLOOD UREA NITROGEN 14 MG/DL (7-18); CHLORIDE 105 MEQ/L (98-107); GLOMERULAR FILTRATION RATE 57 ML/MIN (>89); POTASSIUM 3.9 MEQ/L (3.5-5.1); SODIUM (NA) 135 MEQ/L (136-145); TOTAL BILIRUBIN ADULT 0.3 MG/DL (0.2-1.0)
--- NOTE | 2017-03-10 08:34 | HHI.CCPN ---
Subjective Remarks/Hospital Course The patient is a 76-year-old female with past medical history of recurrent UTI as diabetes mellitus, hyperlipidemia who presented to [facility] ED with complaints of dysuria, fever, Generalized weakness and feeling cold. She also reports some abdominal pain with constipation but denies any nausea, vomiting. In addition she denies any chest pain, shortness of breath, cough or any constitutional symptoms. On arrival to the ER she was hypotensive and had a temperature of 102.0. Her laboratory data revealed leukocytosis with a WBC of 13.9 and mild acute kidney injury with creatinine level 1.23. Her urinalysis was grossly positive for UTI where it showed positive nitrites, leukocyte esterase [address] scan of abdomen and pelvis obtained which showed acute inflammatory process involving left kidney with hydronephrosis and mild hydroureter. Also colonic diverticulosis without acute inflammation noted and small calcified pleural plaque involving the left lung base. In the ER she was given about to 1/2 liter of IV fluids and a right IJ central line was placed. The patient received HG gentamicin, vancomycin in the ER. When seen she is on 2 liters oxygen with good saturation and a current blood pressure of 104/55. Her lactic acid level measured at 1.7. 03/10 Patient is lying in bed in NAD. Afebrile. Off Levophed Objective Vital Signs Date Time Temp Pulse Resp B/P (MAP) Pulse Ox O2 Delivery O2 Flow Rate FiO2 03/10/17 06:00 94 03/10/17 01:20 27 107/65 (79) 03/10/17 01:00 79 03/10/17 00:00 99.2 03/09/17 11:00 Nasal Cannula 2.00 Intake and Output 03/10/17 03/10/17 03/10/17 07:59 15:59 23:59 Intake Total 380 ml Output Total 1400 ml Balance -1020 ml Result Diagram: 03/10/17 0410 03/10/17 0410 Other Results Laboratory Tests Test 03/09/17 12:00 03/09/17 14:17 03/10/17 04:10 Nasal Screen MRSA (PCR) MRSA NOT DETECTED Lactic Acid Level 1.2 mmol/L White Blood Count 14.6 TH/MM3 Red Blood Count 3.49 MIL/MM3 Hemoglobin 10.4 GM/DL Hematocrit 30.3 % Mean Corpuscular Volume 86.6 FL Mean Corpuscular Hemoglobin 29.9 PG Mean Corpuscular Hemoglobin Concent 34.5 % Red Cell Distribution Width 14.0 % Platelet Count 204 TH/MM3 Mean Platelet Volume 8.3 FL Neutrophils (%) (Auto) 85.0 % Lymphocytes (%) (Auto) 6.6 % Monocytes (%) (Auto) 8.2 % Eosinophils (%) (Auto) 0.0 % Basophils (%) (Auto) 0.2 % Neutrophils # (Auto) 12.4 TH/MM3 Lymphocytes # (Auto) 1.0 TH/MM3 Monocytes # (Auto) 1.2 TH/MM3 Eosinophils # (Auto) 0.0 TH/MM3 Basophils # (Auto) 0.0 TH/MM3 CBC Comment DIFF FINAL Differential Comment Blood Urea Nitrogen 14 MG/DL Creatinine 0.95 MG/DL Random Glucose 191 MG/DL Total Protein 5.5 GM/DL Albumin 2.5 GM/DL Calcium Level 7.5 MG/DL Alkaline Phosphatase 63 U/L Aspartate Amino Transf (AST/SGOT) 34 U/L Alanine Aminotransferase (ALT/SGPT) 32 U/L Total Bilirubin 0.3 MG/DL Sodium Level 135 MEQ/L Potassium Level 3.9 MEQ/L Chloride Level 105 MEQ/L Carbon Dioxide Level 23.6 MEQ/L Anion Gap 6 MEQ/L Estimat Glomerular Filtration Rate 57 ML/MIN Imaging Last Impressions Chest X-Ray 03/09/17 0852 Signed Impressions: Service Date/Time: Thursday, March 09, 2017 08:53 - CONCLUSION: Minimal parenchymal changes left base. There is no pneumothorax. Tomer Nolasco MD FACR Abdomen/Pelvis CT 03/09/17 0611 Signed Impressions: Service Date/Time: Thursday, March 09, 2017 07:16 - CONCLUSION: 1. Acute inflammatory process involving the left kidney with hydronephrosis and mild hydroureter. I see no stones. Differential diagnostic considerations would include a recently passed stone versus pyelonephritis. Followup imaging to document resolution is suggested. 2. Colonic diverticulosis without acute inflammation. 3. Prior cholecystectomy. 4. Small calcified pleural plaque involving the left lung base. This can be seen in asbestos exposure. Sean Arzola Jr., MD Objective Remarks GENERAL: Patient is lying in bed in NAD SKIN: Warm and dry. HEAD: Normocephalic. EYES: No scleral icterus. No injection or drainage. NECK: Supple, trachea midline. No JVD or lymphadenopathy. CARDIOVASCULAR: Regular rate and rhythm without murmurs, gallops, or rubs. RESPIRATORY: Breath sounds equal bilaterally. No accessory muscle use. GASTROINTESTINAL: Abdomen soft, non-tender, nondistended. MUSCULOSKELETAL: No cyanosis, or edema. BACK: Nontender without obvious deformity. No CVA tenderness. Neuro: Awake and alert A/P Assessment and Plan 1. Resp Insuff 2. Urinary tract infection. 3. Left-sided hydronephrosis. 4. Mild acute kidney injury. 5. Rule out pyelonephritis. 6. History of recurrent UTI. 7. Leukocytosis 8. Diabetes mellitus. 9. Hyperlipidemia. Plan Neuro: Awake, alert avoid any sedatives. Pulm: Continue with oxygen maintain sats > 92%. Bronchodilators CV: Off Levophed Monitor HR and BP and maintain MAP> 65mmHg. Lactic acid level: 1.2. Decrease NS 75ml an hour. : Monitor renal function Is and Os and electrolyte replacement per protocol Urology is following for mild left-sided hydronephrosis - possibly 2nd recent stone passage GI: On Protonix 40 mg IV daily for GI prophylaxis. On Diabetic diet ID: Continue abx(Aztreonam) and monitor for signs of infections( fever and WBC) . ID eval Follow up on blood cultures and urine culture. BC 03/09: GNR Heme: Monitor CBC. Endo: SSI with Accu-Chek q. 6-hour for glycemic control. GI and DVT prophylaxis with Protonix and heparin Subcu respectively. Will sign off and transfer care to HEP Level 3 Corry Conrad MD Mar 10, 2017 08:34
[2017-03-10] MEDS ORDERED: POTASSIUM PHOSPHATE MONOBASIC 500 MG TAB PO/TUBE PRN (09:00)
[2017-03-10] MEDS ORDERED: POTASSIUM CHLOR 20 MEQ PREMIX 100 ML IV PRN ×2 (09:00)
[2017-03-10] MEDS ORDERED: MAGNESIUM OXIDE 400 MG TAB PO PRN (09:00)
[2017-03-10] MEDS ORDERED: MAGNESIUM SULFATE INJ 2 GM in SODIUM CHLORIDE 0.9% INJ 96 ML IV PRN (09:00)
[2017-03-10] MEDS ORDERED: POTASSIUM PHOSPHATE INJ 30 MMOL in SODIUM CHLOR 0.9% 250 ML INJ 250 ML IV PRN (09:00)
[2017-03-10] MEDS: DOCUSATE SODIUM 50 MG/SENNA 8.6 MG TAB PO SCH ×2 (09:00→20:13)
[2017-03-10] MEDS ORDERED: MAGNESIUM SULFATE INJ 4 GM in SODIUM CHLORIDE 0.9% INJ 92 ML IV PRN (09:00)
[2017-03-10] MEDS ORDERED: POTASSIUM PHOSPHATE MONOBASIC 500 MG TAB PO PRN (09:00)
[2017-03-10] MEDS ORDERED: POTASSIUM CHLORIDE 25 MEQ EFFERVESCENT TAB PO PRN (09:00)
[2017-03-10] MEDS ORDERED: SODIUM PHOSPHATE INJ 30 MMOL in SODIUM CHLOR 0.9% 250 ML INJ 240 ML IV PRN (09:00)
[2017-03-10] MEDS ORDERED: POTASSIUM CHLOR 40 MEQ PREMIX 100 ML IV PRN ×2 (09:00)
[2017-03-10] MEDS: PANTOPRAZOLE SODIUM 40 MG VIAL IV SCH (09:00)
--- NOTE | 2017-03-10 11:25 | PD.CONS ---
History of Present Illness Service Infectious disease Consult Requested By Dr Leslee Conrad Reason for Consult Evaluate patient with gram-negative sepsis Primary Care Physician Lenin Sultana M.D. Diagnoses: History of Present Illness Patient seen and examined. Records reviewed. Patient is a 76-year-old female, presented to the hospital for further evaluation of fever. Patient for the last 2 days has had some lower abdominal pain, more so on the left side. She also has had constipation and attributes her problem with urination due to the constipation. She has had dysuria. She denies any hematuria, no previous history of kidney stone, no history of passing Gravel-like material in her urine. One day prior to admission she developed a fever. It persisted, and so the following day she presented to the hospital for further evaluation and treatment. Patient has been febrile up to 103. WBCs elevated. CT of the abdomen and pelvis showing abnormality in the left kidney with some mild hydronephrosis. Patient currently denies any further abdominal pain. She has a Shepard catheter in place. She has not had any respiratory symptoms, no nausea or vomiting. She has not had any bowel movement yet. Denies any back pain. 2 blood cultures done on admission are now reported as growing gram-negative luther. Infectious disease consultation has been requested to evaluate the patient. Review of Systems Constitutional: COMPLAINS OF: Fever, Chills, Change in appetite Eyes: DENIES: Eye pain Ears, nose, mouth, throat: DENIES: Nasal discharge, Oral lesions, Throat pain, Ear Pain, Sinus Pain Respiratory: DENIES: Cough, Shortness of breath Cardiovascular: DENIES: Chest pain, Palpitations, Syncope Gastrointestinal: COMPLAINS OF: Abdominal pain, Constipation, DENIES: Nausea, Vomiting, Difficulty Swallowing Genitourinary: COMPLAINS OF: Dysuria, DENIES: Hematuria Musculoskeletal: DENIES: Joint pain, Joint Swelling, Back pain Integumentary: DENIES: Rash Neurologic: DENIES: Headache, Localized weakness Psychiatric: DENIES: Confusion, Hallucinations Past Family Social History Allergies: Coded Allergies: Influenza Virus Vaccines (Unverified Allergy, Severe, FLU LIKE REACTIO X 2 WEEKS, 03/09/17) aspirin (Unverified Allergy, Severe, STOMACH BROWN, 03/09/17) codeine (Unverified Allergy, Severe, VOMITS, 03/09/17) penicillin G (Unverified Allergy, Unknown, 03/09/17) Past Medical History Diabetes mellitus Hyperlipidemia Diabetic neuropathy History of gastritis. Past Surgical History Cholecystectomy Active Ordered Medications Albuterol Azactam Dulcolax Heparin Insulin Lactulose MOM Magnesium Protonix Potassium Senokot Family History Noncontributory Social History Smoker 1 pack per day No alcohol abuse No illicit drug Physical Exam Vital Signs Vital Signs Date Time Temp Pulse Resp B/P (MAP) Pulse Ox O2 Delivery O2 Flow Rate FiO2 03/10/17 06:00 94 03/10/17 04:00 79 03/10/17 02:00 85 03/10/17 01:20 80 27 107/65 (79) 03/10/17 01:15 78 21 03/10/17 01:00 84 27 100/53 (69) 79 03/10/17 00:45 97 43 03/10/17 00:41 84 34 108/59 (75) 03/10/17 00:30 77 30 03/10/17 00:20 78 22 100/57 (71) 03/10/17 00:15 87 35 03/10/17 00:00 99.2 77 20 99/58 (72) 97 03/10/17 00:00 77 22 99/58 (72) 03/10/17 00:00 77 03/10/17 00:00 77 22 99/58 (72) 03/09/17 23:45 72 19 03/09/17 23:09 77 93/51 03/09/17 22:00 77 03/09/17 20:00 80 03/09/17 20:00 99.4 21 90/54 (66) 96 03/09/17 18:00 86 03/09/17 16:00 81 03/09/17 16:00 98.8 81 20 98/65 (76) 97 03/09/17 12:30 96 100/58 03/09/17 12:01 03/09/17 12:00 94.4 96 19 95/51 (66) 95 03/09/17 11:16 82 98/55 (69) Physical Exam GENERAL: Patient is a well-nourished, well-developed female, awake and alert , not in respiratory distress. SKIN: Warm and dry. No generalized rash, no ecchymoses and no evidence of embolic lesions. HEAD: Atraumatic. Normocephalic. No temporal wasting, or tenderness. EYES: [place] conjunctiva. No petechia or hemorrhage. Pupils equal, round and reactive to light. Extraocular movements full and intact. No scleral icterus. No injection or drainage. EARS, NOSE AND THROAT: Nose without bleeding or purulent nasal discharge. No sinus tenderness. Mucous membranes pink and moist. No oral lesions noted. No exudate. No oral thrush. NECK: Trachea midline. Supple and not tender, no meningeal signs CARDIOVASCULAR: Regular rate and rhythm. No murmurs, rubs or gallops heard RESPIRATORY: Clear to auscultation. Breath sounds equal bilaterally. No rales , wheezing or rhonchi ABDOMEN: Soft, non-tender, mildly distended. Bowel sounds present and normoactive. No guarding. No rebound. No organomegaly. EXTREMITIES: No clubbing, cyanosis, or edema.No joint effusion, has good ROM. No calf tenderness. Well perfused and warm. NEUROLOGICAL: Awake and alert. Cranial nerves grossly intact. Motor grossly within normal limits. PSYCHIATRIC: Normal affect, calm and cooperative. LINE: No evidence of infection : Shepard in place, urine looks clear Laboratory Laboratory Tests Test 03/09/17 12:00 03/09/17 14:17 03/10/17 04:10 Nasal Screen MRSA (PCR) MRSA NOT DETECTED Lactic Acid Level 1.2 White Blood Count 14.6 Red Blood Count 3.49 Hemoglobin 10.4 Hematocrit 30.3 Mean Corpuscular Volume 86.6 Mean Corpuscular Hemoglobin 29.9 Mean Corpuscular Hemoglobin Concent 34.5 Red Cell Distribution Width 14.0 Platelet Count 204 Mean Platelet Volume 8.3 Neutrophils (%) (Auto) 85.0 Lymphocytes (%) (Auto) 6.6 Monocytes (%) (Auto) 8.2 Eosinophils (%) (Auto) 0.0 Basophils (%) (Auto) 0.2 Neutrophils # (Auto) 12.4 Lymphocytes # (Auto) 1.0 Monocytes # (Auto) 1.2 Eosinophils # (Auto) 0.0 Basophils # (Auto) 0.0 CBC Comment DIFF FINAL Differential Comment Blood Urea Nitrogen 14 Creatinine 0.95 Random Glucose 191 Total Protein 5.5 Albumin 2.5 Calcium Level 7.5 Phosphorus Level 1.3 Alkaline Phosphatase 63 Aspartate Amino Transf (AST/SGOT) 34 Alanine Aminotransferase (ALT/SGPT) 32 Total Bilirubin 0.3 Sodium Level 135 Potassium Level 3.9 Chloride Level 105 Carbon Dioxide Level 23.6 Anion Gap 6 Estimat Glomerular Filtration Rate 57 Date/Time Source Procedure Growth Status 03/09/17 06:25 Blood Peripheral Aerobic Blood Culture - Preliminary NO GROWTH IN 1 DAY Resulted 03/09/17 06:25 Anaerobic Blood Culture - Preliminary Gram Negative Luther Resulted 03/09/17 06:30 Urine Catheterized Urine Urine Culture Pending Received Result Diagram: 03/10/1740903/10/17409 Imaging RADIOLOGY STUDIES/FILMS REVIEWED Last Impressions Chest X-Ray 03/09/1752 Signed Impressions: Service Date/Time: Thursday, March 09, 2017 08:53 - CONCLUSION: Minimal parenchymal changes left base. There is no pneumothorax. Tomer Nolasco MD FACR Abdomen/Pelvis CT 03/09/17 0611 Signed Impressions: Service Date/Time: Thursday, March 09, 2017 07:16 - CONCLUSION: 1. Acute inflammatory process involving the left kidney with hydronephrosis and mild hydroureter. I see no stones. Differential diagnostic considerations would include a recently passed stone versus pyelonephritis. Followup imaging to document resolution is suggested. 2. Colonic diverticulosis without acute inflammation. 3. Prior cholecystectomy. 4. Small calcified pleural plaque involving the left lung base. This can be seen in asbestos exposure. Sean Arzola Jr., MD Assessment and Plan Assessment and Plan IMPRESSION GNR sepsis due to complicated UTI (high fevers, leukocytosis, renal insufficiency, +BC) Pyelonephritis, has mild L hydro, ?pass stone Renal insufficiency, better Rash with PCN RECOMMENDATION Change to Cefepime Repeat 2 BC Follow C/S and adjsut Abs urology following patient - rec US to reevaluate hydronephrosis - should improve of she passed a stone Follow CBC Monitor progress I willfollow along with you Thank you for this consultation Discussed Condition With Explained plan to the patient and Elizabeth Faye MD Mar 10, 2017 11:24
[2017-03-10] MEDS: CEFEPIME INJ 2,000 MG in SODIUM CHLORIDE 0.9% INJ 100 ML IV SCH (12:00)
[2017-03-11] VITALS (15 sets, daily range): BP systolic 87–132; BP diastolic 50–77; PULSE 72–98; RESP 18–37; TEMP 98.1–99.5; O2SAT 92–98
[2017-03-11] MEDS: CEFEPIME INJ 2,000 MG in SODIUM CHLORIDE 0.9% INJ 100 ML IV SCH ×2 (01:05→13:37)
[2017-03-11] MEDS: SODIUM CHLOR 0.9% 1000 ML INJ 1,000 ML IV SCH ×2 (01:06→16:19)
[2017-03-11] MEDS: HEPARIN SODIUM - SQ 10,000 UNITS/ML VIAL SQ SCH ×2 (01:06→13:38)
[2017-03-11] MEDS: RESP: ALBUTEROL 2.5 MG/IPRATROPIUM 0.5 MG NEB (SCH) INH ×4 (03:40→20:16)
[2017-03-11] MEDS: CHLORHEXIDINE GLUCONATE 2 % 1 PACK (2 CLOTHS) TOP SCH (04:00)
[2017-03-11 04:56] LABS: AUTOMATED NEUTROPHIL # 7.2 TH/MM3 (1.8-7.7); BASOPHIL % 0.2 % (0.0-2.0); EOSINOPHIL % 0.3 % (0.0-4.0); HEMO FLAGS DIFF FINAL; LYMPH % 11.7 % (9.0-44.0); LYMPHOCYTE # 1.1 TH/MM3 (1.0-4.8); MEAN CELL VOLUME 86.4 FL (80.0-100.0); MEAN CORPUSCULAR HEMOGLOBIN 28.6 PG (27.0-34.0); MEAN CORPUSCULAR HGB CONC 33.1 % (32.0-36.0); MONO % 9.2 % (0.0-8.0); NEUT % 78.6 % (16.0-70.0); PLATELET COUNT 196 TH/MM3 (150-450); RED BLOOD COUNT 3.35 MIL/MM3 (4.00-5.30); RED CELL DISTRIBUTION WIDTH 13.8 % (11.6-17.2); WHITE BLOOD COUNT 9.2 TH/MM3 (4.0-11.0)
[2017-03-11 05:09] LABS: BICARBONATE 23.8 MEQ/L (21.0-32.0); POTASSIUM 3.6 MEQ/L (3.5-5.1)
[2017-03-11] MEDS: INSULIN NovoLIN REGULAR SUPPLEMENTAL SCALE SQ SCH ×3 (06:00→12:00)
[2017-03-11] MEDS: DOCUSATE SODIUM 50 MG/SENNA 8.6 MG TAB PO SCH ×2 (08:27→20:18)
[2017-03-11] MEDS: PANTOPRAZOLE SODIUM 40 MG VIAL IV SCH (08:27)
--- NOTE | 2017-03-11 09:54 | HHI.IDPN ---
Subjective Subjective Remarks Patient is a 76-year-old female, presented to the hospital for further evaluation of fever. Patient for the last 2 days has had some lower abdominal pain, more so on the left side. She also has had constipation and attributes her problem with urination due to the constipation. She has had dysuria. She denies any hematuria, no previous history of kidney stone, no history of passing Gravel-like material in her urine. One day prior to admission she developed a fever. It persisted, and so the following day she presented to the hospital for further evaluation and treatment. Patient has been febrile up to 103. WBCs elevated. CT of the abdomen and pelvis showing abnormality in the left kidney with some mild hydronephrosis. Patient currently denies any further abdominal pain. She has a Shepard catheter in place. She has not had any respiratory symptoms, no nausea or vomiting. She has not had any bowel movement yet. Denies any back pain. 2 blood cultures done on admission are now reported as growing gram-negative luther. Notes reviewed D/W RN Temps ok BP ok C/O constipation causing her abdominal pain BC and UC with GNR, no ID yet WBC down to normal Creatinine normal Antibiotics Cefepime Lines PIV Past Medical History Diabetes mellitus Hyperlipidemia Diabetic neuropathy History of gastritis. Past Surgical History Cholecystectomy Allergies: Coded Allergies: Influenza Virus Vaccines (Unverified Allergy, Severe, FLU LIKE REACTIO X 2 WEEKS, 03/09/17) aspirin (Unverified Allergy, Severe, STOMACH BROWN, 03/09/17) codeine (Unverified Allergy, Severe, VOMITS, 03/09/17) penicillin G (Unverified Allergy, Unknown, 03/09/17) Objective . Vital Signs Date Time Temp Pulse Resp B/P (MAP) Pulse Ox O2 Delivery O2 Flow Rate FiO2 03/11/17 06:00 76 03/11/17 04:00 99.0 76 21 87/52 (64) 96 03/11/17 04:00 76 03/11/17 02:00 81 03/11/17 00:00 72 18 91/50 (64) 97 03/11/17 00:00 72 03/10/17 22:00 78 03/10/17 20:47 97 Nasal Cannula 2.00 03/10/17 20:00 99.5 72 20 135/67 (89) 98 03/10/17 20:00 72 03/10/17 18:00 79 03/10/17 16:46 84 34 108/59 (75) 03/10/17 16:00 77 03/10/17 14:00 85 03/10/17 11:40 97 Nasal Cannula 2.00 . Laboratory Tests Test 03/10/17 04:10 03/11/17 04:00 White Blood Count 14.6 TH/MM3 9.2 TH/MM3 Red Blood Count 3.49 MIL/MM3 3.35 MIL/MM3 Hemoglobin 10.4 GM/DL 9.6 GM/DL Hematocrit 30.3 % 29.0 % Mean Corpuscular Volume 86.6 FL 86.4 FL Mean Corpuscular Hemoglobin 29.9 PG 28.6 PG Mean Corpuscular Hemoglobin Concent 34.5 % 33.1 % Red Cell Distribution Width 14.0 % 13.8 % Platelet Count 204 TH/MM3 196 TH/MM3 Mean Platelet Volume 8.3 FL 7.7 FL Neutrophils (%) (Auto) 85.0 % 78.6 % Lymphocytes (%) (Auto) 6.6 % 11.7 % Monocytes (%) (Auto) 8.2 % 9.2 % Eosinophils (%) (Auto) 0.0 % 0.3 % Basophils (%) (Auto) 0.2 % 0.2 % Neutrophils # (Auto) 12.4 TH/MM3 7.2 TH/MM3 Lymphocytes # (Auto) 1.0 TH/MM3 1.1 TH/MM3 Monocytes # (Auto) 1.2 TH/MM3 0.8 TH/MM3 Eosinophils # (Auto) 0.0 TH/MM3 0.0 TH/MM3 Basophils # (Auto) 0.0 TH/MM3 0.0 TH/MM3 CBC Comment DIFF FINAL DIFF FINAL Differential Comment Laboratory Tests Test 03/09/17 14:17 03/10/17 04:10 03/11/17 04:00 Lactic Acid Level 1.2 mmol/L Blood Urea Nitrogen 14 MG/DL 13 MG/DL Creatinine 0.95 MG/DL 0.84 MG/DL Random Glucose 191 MG/DL 172 MG/DL Total Protein 5.5 GM/DL Albumin 2.5 GM/DL Calcium Level 7.5 MG/DL 7.5 MG/DL Phosphorus Level 1.3 MG/DL Alkaline Phosphatase 63 U/L Aspartate Amino Transf (AST/SGOT) 34 U/L Alanine Aminotransferase (ALT/SGPT) 32 U/L Total Bilirubin 0.3 MG/DL Sodium Level 135 MEQ/L 136 MEQ/L Potassium Level 3.9 MEQ/L 3.6 MEQ/L Chloride Level 105 MEQ/L 106 MEQ/L Carbon Dioxide Level 23.6 MEQ/L 23.8 MEQ/L Anion Gap 6 MEQ/L 6 MEQ/L Estimat Glomerular Filtration Rate 57 ML/MIN 66 ML/MIN Microbiology Date/Time Source Procedure Growth Status 03/10/17 17:52 Blood Peripheral Aerobic Blood Culture Pending Received 03/10/17 17:52 Blood Peripheral Anaerobic Blood Culture Pending Received 03/10/17 17:49 Blood Peripheral Aerobic Blood Culture Pending Received 03/10/17 17:49 Blood Peripheral Anaerobic Blood Culture Pending Received 03/10/17 11:35 Blood Peripheral Aerobic Blood Culture Pending Received 03/10/17 11:35 Blood Peripheral Anaerobic Blood Culture Pending Received 03/10/17 11:30 Blood Peripheral Aerobic Blood Culture Pending Received 03/10/17 11:30 Blood Peripheral Anaerobic Blood Culture Pending Received 03/09/17 06:25 Blood Peripheral Aerobic Blood Culture - Preliminary NO GROWTH IN 1 DAY Resulted 03/09/17 06:25 Anaerobic Blood Culture - Preliminary Gram Negative Luther Resulted 03/09/17 06:20 Blood Peripheral Aerobic Blood Culture - Preliminary Gram Negative Luther Resulted 03/09/17 06:20 Anaerobic Blood Culture - Preliminary Gram Negative Luther Resulted 03/09/17 06:30 Urine Catheterized Urine Urine Culture - Preliminary Gram Negative Luther Resulted Imaging Last Impressions Chest X-Ray 03/09/17 0852 Signed Impressions: Service Date/Time: Thursday, March 09, 2017 08:53 - CONCLUSION: Minimal parenchymal changes left base. There is no pneumothorax. Tomer Nolasco MD FACR Abdomen/Pelvis CT 03/09/17 0611 Signed Impressions: Service Date/Time: Thursday, March 09, 2017 07:16 - CONCLUSION: 1. Acute inflammatory process involving the left kidney with hydronephrosis and mild hydroureter. I see no stones. Differential diagnostic considerations would include a recently passed stone versus pyelonephritis. Followup imaging to document resolution is suggested. 2. Colonic diverticulosis without acute inflammation. 3. Prior cholecystectomy. 4. Small calcified pleural plaque involving the left lung base. This can be seen in asbestos exposure. Sean Arzola Jr., MD Physical Exam GENERAL: awake and alert, not in respiratory distress. SKIN: Warm and dry. No generalized rash, no ecchymoses and no evidence of embolic lesions. HEAD: Atraumatic. Normocephalic. No temporal wasting, or tenderness. EYES: [place] conjunctiva. No petechia or hemorrhage. No scleral icterus. No injection or drainage. EARS, NOSE AND THROAT: Nose without bleeding or purulent nasal discharge. Mucous membranes pink and moist. No oral lesions noted. NECK: Trachea midline. Supple and not tender, no meningeal signs CARDIOVASCULAR: Regular rate and rhythm. No murmurs, rubs or gallops heard RESPIRATORY: Clear to auscultation. Breath sounds equal bilaterally. No rales , wheezing or rhonchi ABDOMEN: Soft, globular, non-tender, mildly distended. Bowel sounds present and normoactive. No guarding. No rebound. No organomegaly. EXTREMITIES: No clubbing, cyanosis, or edema.No joint effusion, has good ROM. No calf tenderness. Well perfused and warm. NEUROLOGICAL: Awake and alert. Cranial nerves grossly intact. Motor grossly within normal limits. PSYCHIATRIC: Normal affect, calm and cooperative. LINE: No evidence of infection : Shepard in place, urine looks clear Assessment & Plan Remarks IMPRESSION GNR sepsis due to complicated UTI (high fevers, leukocytosis, renal insufficiency, +BC) Pyelonephritis, has mild L hydro, ?passed stone Renal insufficiency, better Rash with PCN - tolerating Cephalosporins RECOMMENDATION Continue Cefepime Follow C/S and adjsut Abs Urology following patient - rec US to reevaluate hydronephrosis - should improve of she passed a stone Follow CBC Monitor progress D/W RN Spoke with at bedside Elizabeth Faye MD Mar 11, 2017 09:54
--- NOTE | 2017-03-11 13:22 | RADRPT ---
EXAM DATE/TIME: 03/11/2017 12:35 [facility] COMPARISON: No previous studies available for comparison. INDICATIONS : Hydronephrosis. MEDICAL HISTORY : Hypertension. Hearing loss. Glasses. Gastritis. Diverticulitis. Abdominal pain. Urinary tract inf ection. Dysuria. Anxiety. SURGICAL HISTORY : Cholecystectomy. ENCOUNTER: Initial ACUITY: 1 day PAIN SCORE: 2/10 LOCATION: Bilateral flank MEASUREMENTS: RIGHT KIDNEY: 10.7 x 3.3 x 4.8 cm LEFT KIDNEY: 10.9 x 4.0 x 5.5 cm FINDINGS: RIGHT KIDNEY: Renal cortex is normal in thickness and echotexture. No hydronephrosis, stone, or mass. LEFT KIDNEY: Renal cortex is normal in thickness and echotexture. No hydronephrosis, stone, or mass. BLADDER: Within normal limits given the degree of distension. CONCLUSION: Negative for hydronephrosis. Trace ascites. Tomer Nolasco MD FACR on March 11, 2017 at 13:20 Board Certified Radiologist. This report was verified electronically.
--- NOTE | 2017-03-11 16:07 | HHI.PR ---
Subjective Remarks The patient is a 76-year-old female with past medical history of recurrent UTI as diabetes mellitus, hyperlipidemia who presented to [facility] ED on 03/09/17 with septic shock secondary to UTI and E Coli bacteremia. On arrival to the ER she was hypotensive and had a temperature of 102.0. Her laboratory data revealed leukocytosis with a WBC of 13.9 and mild acute kidney injury with creatinine level 1.23. Her urinalysis was grossly positive for UTI where it showed positive nitrites, leukocyte esterase 118 and WBC. Patient inititally admitted to ICU was on Levophed for blood pressure support and Aztreonam. Patient improving and more stable at this point we have been consulted to assume care. Patient able to provide her name, location and year correctly but continues to be confused. Per RN mental status waxes and wanes. Patient reports feeling better today. Patient denies SOB, chest pain, nausea, vomiting, diarrhea, constipation, fevers or chills. Objective Vitals Vital Signs Date Time Temp Pulse Resp B/P (MAP) Pulse Ox O2 Delivery O2 Flow Rate FiO2 03/11/17 14:00 98 03/11/17 12:04 97 Nasal Cannula 2.00 03/11/17 12:00 98 03/11/17 12:00 98.5 75 24 113/58 (76) 98 03/11/17 10:00 98 03/11/17 08:00 98 03/11/17 08:00 98.5 90 37 116/62 (80) 92 03/11/17 06:00 76 03/11/17 04:00 99.0 76 21 87/52 (64) 96 03/11/17 04:00 76 03/11/17 02:00 81 03/11/17 00:00 72 18 91/50 (64) 97 03/11/17 00:00 72 03/10/17 22:00 78 03/10/17 20:47 97 Nasal Cannula 2.00 03/10/17 20:00 99.5 72 20 135/67 (89) 98 03/10/17 20:00 72 03/10/17 18:00 79 03/10/17 16:46 84 34 108/59 (75) 03/11/17 03/11/17 03/12/17 15:00 23:00 07:00 Intake Total 100 ml Balance 100 ml IV Total 100 ml Result Diagram: 03/11/17 0400 03/11/17 0400 Other Results Laboratory Tests Test 03/09/17 06:20 03/09/17 06:30 03/09/17 12:00 03/09/17 14:17 White Blood Count 13.9 TH/MM3 Red Blood Count 4.38 MIL/MM3 Hemoglobin 12.8 GM/DL Hematocrit 37.7 % Mean Corpuscular Volume 86.0 FL Mean Corpuscular Hemoglobin 29.2 PG Mean Corpuscular Hemoglobin Concent 34.0 % Red Cell Distribution Width 13.9 % Platelet Count 227 TH/MM3 Mean Platelet Volume 7.9 FL Neutrophils (%) (Auto) 87.2 % Lymphocytes (%) (Auto) 4.1 % Monocytes (%) (Auto) 8.1 % Eosinophils (%) (Auto) 0.0 % Basophils (%) (Auto) 0.6 % Neutrophils # (Auto) 12.1 TH/MM3 Lymphocytes # (Auto) 0.6 TH/MM3 Monocytes # (Auto) 1.1 TH/MM3 Eosinophils # (Auto) 0.0 TH/MM3 Basophils # (Auto) 0.1 TH/MM3 CBC Comment DIFF FINAL Differential Comment Prothrombin Time 10.7 SEC Prothromb Time International Ratio 1.0 RATIO Activated Partial Thromboplast Time 28.7 SEC Blood Urea Nitrogen 21 MG/DL Creatinine 1.23 MG/DL Random Glucose 139 MG/DL Total Protein 7.3 GM/DL Albumin 3.4 GM/DL Calcium Level 10.0 MG/DL Alkaline Phosphatase 62 U/L Aspartate Amino Transf (AST/SGOT) 15 U/L Alanine Aminotransferase (ALT/SGPT) 20 U/L Total Bilirubin 0.6 MG/DL Sodium Level 133 MEQ/L Potassium Level 3.9 MEQ/L Chloride Level 98 MEQ/L Carbon Dioxide Level 25.7 MEQ/L Anion Gap 9 MEQ/L Estimat Glomerular Filtration Rate 43 ML/MIN Lactic Acid Level 1.7 mmol/L 1.2 mmol/L Lipase 108 U/L Urine Color YELLOW Urine Turbidity HAZY Urine pH 6.5 Urine Specific [place] 1.011 Urine Protein 30 mg/dL Urine Glucose (UA) NEG mg/dL Urine Ketones NEG mg/dL Urine Occult Blood MOD Urine Nitrite POS Urine Bilirubin NEG Urine Urobilinogen LESS THAN 2.0 MG/DL Urine Leukocyte Esterase LARGE Urine RBC 26 /hpf Urine WBC 118 /hpf Urine Bacteria MANY /hpf Microscopic Urinalysis Comment CATH-CULTURE IND Nasal Screen MRSA (PCR) MRSA NOT DETECTED Test 03/10/17 04:10 03/11/17 04:00 White Blood Count 14.6 TH/MM3 9.2 TH/MM3 Red Blood Count 3.49 MIL/MM3 3.35 MIL/MM3 Hemoglobin 10.4 GM/DL 9.6 GM/DL Hematocrit 30.3 % 29.0 % Mean Corpuscular Volume 86.6 FL 86.4 FL Mean Corpuscular Hemoglobin 29.9 PG 28.6 PG Mean Corpuscular Hemoglobin Concent 34.5 % 33.1 % Red Cell Distribution Width 14.0 % 13.8 % Platelet Count 204 TH/MM3 196 TH/MM3 Mean Platelet Volume 8.3 FL 7.7 FL Neutrophils (%) (Auto) 85.0 % 78.6 % Lymphocytes (%) (Auto) 6.6 % 11.7 % Monocytes (%) (Auto) 8.2 % 9.2 % Eosinophils (%) (Auto) 0.0 % 0.3 % Basophils (%) (Auto) 0.2 % 0.2 % Neutrophils # (Auto) 12.4 TH/MM3 7.2 TH/MM3 Lymphocytes # (Auto) 1.0 TH/MM3 1.1 TH/MM3 Monocytes # (Auto) 1.2 TH/MM3 0.8 TH/MM3 Eosinophils # (Auto) 0.0 TH/MM3 0.0 TH/MM3 Basophils # (Auto) 0.0 TH/MM3 0.0 TH/MM3 CBC Comment DIFF FINAL DIFF FINAL Differential Comment Blood Urea Nitrogen 14 MG/DL 13 MG/DL Creatinine 0.95 MG/DL 0.84 MG/DL Random Glucose 191 MG/DL 172 MG/DL Total Protein 5.5 GM/DL Albumin 2.5 GM/DL Calcium Level 7.5 MG/DL 7.5 MG/DL Phosphorus Level 1.3 MG/DL Alkaline Phosphatase 63 U/L Aspartate Amino Transf (AST/SGOT) 34 U/L Alanine Aminotransferase (ALT/SGPT) 32 U/L Total Bilirubin 0.3 MG/DL Sodium Level 135 MEQ/L 136 MEQ/L Potassium Level 3.9 MEQ/L 3.6 MEQ/L Chloride Level 105 MEQ/L 106 MEQ/L Carbon Dioxide Level 23.6 MEQ/L 23.8 MEQ/L Anion Gap 6 MEQ/L 6 MEQ/L Estimat Glomerular Filtration Rate 57 ML/MIN 66 ML/MIN Imaging Last Impressions Renal Ultrasound 03/11/17 0900 Signed Impressions: Service Date/Time: Saturday, March 11, 2017 12:35 - CONCLUSION: Negative for hydronephrosis. Trace ascites. Tomer Nolasco MD FACR Chest X-Ray 03/09/17 0852 Signed Impressions: Service Date/Time: Thursday, March 09, 2017 08:53 - CONCLUSION: Minimal parenchymal changes left base. There is no pneumothorax. Tomer Nolasco MD FACR Abdomen/Pelvis CT 03/09/17 0611 Signed Impressions: Service Date/Time: Thursday, March 09, 2017 07:16 - CONCLUSION: 1. Acute inflammatory process involving the left kidney with hydronephrosis and mild hydroureter. I see no stones. Differential diagnostic considerations would include a recently passed stone versus pyelonephritis. Followup imaging to document resolution is suggested. 2. Colonic diverticulosis without acute inflammation. 3. Prior cholecystectomy. 4. Small calcified pleural plaque involving the left lung base. This can be seen in asbestos exposure. Sean Arzola Jr., MD Objective Remarks GENERAL: Well-nourished, well-developed patient confused but in no acute distress CARDIOVASCULAR: Regular rate and rhythm without murmurs, gallops, or rubs. RESPIRATORY: Breath sounds equal bilaterally. No accessory muscle use. GASTROINTESTINAL: Abdomen soft, non-tender, nondistended. NEUROLOGICAL: Non-focal. able to provide her name, location and year correctly but continues to be confused A/P Problem List: (1) E coli bacteremia ICD Codes: R78.81 - Bacteremia Plan: patient was initially in septic shock on arrival placed in ICU followed by rn immunology initially required blood pressure support with Levophed- but has improved and no longer requiring support Treated with Aztreonam while in ICU DC'd 03/11/17 ID assistance appreciated started Cefepime 03/11/17 03/09/17 Urine culture positive for E Coli 03/09/17 Blood culture positive for E Coli in 2/2 bottles repeat blood culture 03/10/17 NGTD (2) UTI (urinary tract infection) ICD Codes: N39.0 - Urinary tract infection, site not specified Status: Acute Plan: Culture positive for E Coli see above (3) Hydronephrosis, left ICD Codes: N13.30 - Unspecified hydronephrosis Status: Resolved Plan: Initially patient with left hydronephrosis seen by Urology who recommended repeat renal US, ? passage of renal stone 03/11/17 repeat US showed hydronephrosis has resolved (4) JASPER (acute kidney injury) ICD Codes: N17.9 - Acute kidney failure, unspecified Status: Resolved Plan: resolved with IV fluids and suspected passage of renal stone (5) Diabetes mellitus ICD Codes: E11.9 - Type 2 diabetes mellitus without complications Status: Chronic Plan: Continue SSI coverage with accuchecks diabetic diet resume home metformin (6) Hyperlipidemia ICD Codes: E78.5 - Hyperlipidemia, unspecified Status: Chronic Plan: continue home medication (7) Hypertension ICD Codes: I10 - Essential (primary) hypertension Plan: was hypotensive due to septic shock on Levophed has been off Levophed since 03/10 continue to monitor BP trend resume home Lisinopril 5 mg in AM with hold parameters Assessment and Plan Patient examined. Assessment and plan formulated with Arline Guerrero PA-C. I agree with the above. Will d/w ID Request PT evaluation anticipate d/c to SNF vs home with HHC/PT in the next 2-3 days Problem Qualifiers (1) Diabetes mellitus: Desiree Marie Mar 11, 2017 16:07 Eagle King DO Mar 11, 2017 23:36
[2017-03-11] MEDS ORDERED: DEXTROSE 50% IN WATER 50 ML VIAL(D50) IV PRN (16:45)
[2017-03-11] MEDS ORDERED: GLUCAGON 1 MG/ML VIAL OTHER PRN (16:45)
[2017-03-11] MEDS ORDERED: LISINOPRIL 5 MG TAB PO SCH (16:45)
[2017-03-11] MEDS: metFORMIN HCL 500 MG TAB PO SCH (19:07)
[2017-03-11] MEDS: PRAVASTATIN SOD 40 MG TAB PO SCH (20:18)
[2017-03-11] MEDS: INSULIN ASPART SUPPLEMENTAL SCALE SQ SCH (20:19)
[2017-03-12] VITALS (10 sets, daily range): BP systolic 108–135; BP diastolic 50–71; PULSE 70–110; RESP 18–20; TEMP 98.2–99; O2SAT 92–99
[2017-03-12] MEDS: HEPARIN SODIUM - SQ 10,000 UNITS/ML VIAL SQ SCH ×2 (01:43→12:45)
[2017-03-12] MEDS: SODIUM CHLOR 0.9% 1000 ML INJ 1,000 ML IV SCH (01:49)
[2017-03-12] MEDS: CEFEPIME INJ 2,000 MG in SODIUM CHLORIDE 0.9% INJ 100 ML IV SCH ×2 (03:35→12:45)
[2017-03-12] MEDS: CHLORHEXIDINE GLUCONATE 2 % 1 PACK (2 CLOTHS) TOP SCH (04:00)
[2017-03-12] MEDS: RESP: ALBUTEROL 2.5 MG/IPRATROPIUM 0.5 MG NEB (SCH) INH ×4 (04:00→22:00)
[2017-03-12 06:20] LABS: AUTOMATED NEUTROPHIL # 6.6 TH/MM3 (1.8-7.7); BASOPHIL % 0.3 % (0.0-2.0); EOSINOPHIL % 0.3 % (0.0-4.0); HEMATOCRIT 31.7 % (35.0-46.0); HEMO FLAGS DIFF FINAL; LYMPH % 13.1 % (9.0-44.0); LYMPHOCYTE # 1.2 TH/MM3 (1.0-4.8); MEAN CELL VOLUME 85.8 FL (80.0-100.0); MEAN CORPUSCULAR HEMOGLOBIN 28.9 PG (27.0-34.0); MEAN CORPUSCULAR HGB CONC 33.6 % (32.0-36.0); MONO % 12.1 % (0.0-8.0); NEUT % 74.2 % (16.0-70.0); PLATELET COUNT 245 TH/MM3 (150-450); RED BLOOD COUNT 3.69 MIL/MM3 (4.00-5.30); RED CELL DISTRIBUTION WIDTH 13.9 % (11.6-17.2); WHITE BLOOD COUNT 8.8 TH/MM3 (4.0-11.0)
[2017-03-12] MEDS: INSULIN ASPART SUPPLEMENTAL SCALE SQ SCH ×4 (06:20→21:00)
[2017-03-12 06:41] LABS: BICARBONATE 25.1 MEQ/L (21.0-32.0); MAGNESIUM 1.9 MG/DL (1.5-2.5); POTASSIUM 3.5 MEQ/L (3.5-5.1)
[2017-03-12] MEDS: PANTOPRAZOLE SODIUM 40 MG VIAL IV SCH (09:10)
[2017-03-12] MEDS: metFORMIN HCL 500 MG TAB PO SCH ×2 (09:10→17:03)
[2017-03-12] MEDS: DOCUSATE SODIUM 50 MG/SENNA 8.6 MG TAB PO SCH ×2 (09:10→21:00)
[2017-03-12] MEDS: LISINOPRIL 5 MG TAB PO SCH (09:10)
--- NOTE | 2017-03-12 10:12 | HHI.PR ---
Subjective Remarks doing well. feels better. Objective Vitals heart reg lung cta abd s/nt ext no edema cvl Vital Signs Date Time Temp Pulse Resp B/P (MAP) Pulse Ox O2 Delivery O2 Flow Rate FiO2 03/12/17 09:33 97 Nasal Cannula 2.00 03/12/17 08:00 98.8 88 18 131/70 (90) 92 03/12/17 04:00 98.9 87 18 108/58 (75) 93 03/12/17 00:00 98.8 92 20 121/58 (79) 94 03/11/17 22:00 78 03/11/17 22:00 97 03/11/17 20:19 96 Nasal Cannula 2.00 03/11/17 20:10 98.1 87 18 116/77 (90) 98 03/11/17 20:00 87 03/11/17 20:00 99.5 87 25 116/60 (78) 97 03/11/17 18:00 98 03/11/17 16:00 98.7 97 28 132/69 (90) 95 03/11/17 16:00 98 03/11/17 14:00 98 03/11/17 12:04 97 Nasal Cannula 2.00 03/11/17 12:00 98 03/11/17 12:00 98.5 75 24 113/58 (76) 98 Result Diagram: 03/12/17 0558 03/12/17 0558 Imaging Last Impressions Renal Ultrasound 03/11/17 0900 Signed Impressions: Service Date/Time: Saturday, March 11, 2017 12:35 - CONCLUSION: Negative for hydronephrosis. Trace ascites. Tomer Nolasco MD FACR Chest X-Ray 03/09/17 0852 Signed Impressions: Service Date/Time: Thursday, March 09, 2017 08:53 - CONCLUSION: Minimal parenchymal changes left base. There is no pneumothorax. Tomer Nolasco MD FACR Abdomen/Pelvis CT 03/09/17 0611 Signed Impressions: Service Date/Time: Thursday, March 09, 2017 07:16 - CONCLUSION: 1. Acute inflammatory process involving the left kidney with hydronephrosis and mild hydroureter. I see no stones. Differential diagnostic considerations would include a recently passed stone versus pyelonephritis. Followup imaging to document resolution is suggested. 2. Colonic diverticulosis without acute inflammation. 3. Prior cholecystectomy. 4. Small calcified pleural plaque involving the left lung base. This can be seen in asbestos exposure. 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 required blood pressure support with Levophed- but has improved and no longer requiring support Treated with Aztreonam while in ICU DC'd 03/11/17 ID assistance appreciated started Cefepime 03/11/17 03/09/17 Urine culture positive for E Coli 03/09/17 Blood culture positive for E Coli in 2/2 bottles repeat blood culture 03/10/17 NGTD convert to po abx per ID (2) UTI (urinary tract infection) ICD Codes: N39.0 - Urinary tract infection, site not specified Status: Acute Plan: Culture positive for E Coli see above (3) Hydronephrosis, left ICD Codes: N13.30 - Unspecified hydronephrosis Status: Resolved Plan: Initially patient with left hydronephrosis seen by Urology who recommended repeat renal US, ? passage of renal stone 03/11/17 repeat US showed hydronephrosis has resolved (4) JASPER (acute kidney injury) ICD Codes: N17.9 - Acute kidney failure, unspecified Status: Resolved Plan: resolved with IV fluids and suspected passage of renal stone (5) Diabetes mellitus ICD Codes: E11.9 - Type 2 diabetes mellitus without complications Status: Chronic Plan: Continue SSI coverage with accuchecks diabetic diet resume home metformin (6) Hyperlipidemia ICD Codes: E78.5 - Hyperlipidemia, unspecified Status: Chronic Plan: continue home medication (7) Hypertension ICD Codes: I10 - Essential (primary) hypertension Plan: was hypotensive due to septic shock on Levophed has been off Levophed since 03/10 continue to monitor BP trend resume home Lisinopril 5 mg in AM with hold parameters Problem Qualifiers (1) Diabetes mellitus: Angel Mak MD Mar 12, 2017 10:12
[2017-03-12] MEDS ORDERED: POTASSIUM PHOSPHATE MONOBASIC 500 MG TAB PO ONE (10:15)
--- NOTE | 2017-03-12 10:58 | HHI.PR ---
Subjective Patient symptoms today Resting comfortably. Denies flank pain. Objective Vital Signs Vital Signs Date Time Temp Pulse Resp B/P (MAP) Pulse Ox O2 Delivery O2 Flow Rate FiO2 03/12/17 09:33 97 Nasal Cannula 2.00 03/12/17 08:00 98.8 88 18 131/70 (90) 92 03/12/17 04:00 98.9 87 18 108/58 (75) 93 03/12/17 00:00 98.8 92 20 121/58 (79) 94 03/11/17 22:00 78 03/11/17 22:00 97 03/11/17 20:19 96 Nasal Cannula 2.00 03/11/17 20:10 98.1 87 18 116/77 (90) 98 03/11/17 20:00 87 03/11/17 20:00 99.5 87 25 116/60 (78) 97 03/11/17 18:00 98 03/11/17 16:00 98.7 97 28 132/69 (90) 95 03/11/17 16:00 98 03/11/17 14:00 98 03/11/17 12:04 97 Nasal Cannula 2.00 03/11/17 12:00 98 03/11/17 12:00 98.5 75 24 113/58 (76) 98 Intake & Output 03/12/17 03/12/17 07:00 19:00 Intake Total 1006 ml Output Total 600 ml Balance 406 ml Intake Oral 680 ml IV Total 326 ml Output Urine Total 600 ml # Bowel Movements 1 Result Diagram: 03/12/17 0558 03/12/17 0558 Imaging Follow up renal ultrasound performed yesterday demonstrated resolution of the left hydronephrosis Objective Remarks Abdomen soft, nondistended, nontender No CVA tenderness Medications and IVs Current Medications Medications (Trade) Dose Ordered Sig/Betsy Route Start Time Stop Time Status Last Admin (Protonix Inj) 40 mg DAILY IV 03/09/17 12:00 03/12/17 09:10 (Duoneb Neb) 1 ampule Q6HR NEB INH 03/09/17 10:30 03/12/17 09:32 (Duoneb Neb) 1 ampule Q2HR NEB PRN INH 03/09/17 10:30 (Heparin Inj) 5,000 units Q12H SQ 03/09/17 12:00 03/12/17 01:43 Miscellaneous Information 1 Q361D XX 03/09/17 10:30 03/09/17 10:30 (Chlorhexidine 2% Cloth) 3 pack Taper DAILY@04 TOP 03/10/17 04:00 03/06/18 03:59 03/12/17 04:00 (Chlorhexidine 2% Cloth) 3 pack UNSCH PRN TOP 03/09/17 10:30 (Caty-Colace) 1 tab BID PO 03/09/17 21:00 03/12/17 09:10 (Milk Of Magnesia Liq) 30 ml Q12H PRN PO 03/09/17 10:30 03/11/17 06:16 (Senokot) 17.2 mg Q12H PRN PO 03/09/17 10:30 03/11/17 09:36 (Dulcolax Supp) 10 mg DAILY PRN RECTAL 03/09/17 10:30 (Lactulose Liq) 30 ml DAILY PRN PO 03/09/17 10:30 Cefepime HCl 2000 mg/Sodium Chloride 100 ml @ 200 mls/hr Q12H IV 03/10/17 12:00 03/12/17 03:35 (Glucophage) 500 mg BIDPC PO 03/11/17 18:00 03/12/17 09:10 (Pravachol) 40 mg HS PO 03/11/17 21:00 03/11/17 20:18 (Prinivil) 5 mg DAILY PO 03/12/17 09:00 03/12/17 09:10 (D50w (Vial) Inj) 50 ml UNSCH PRN IV 03/11/17 16:45 (Glucagon Inj) 1 mg UNSCH PRN OTHER 03/11/17 16:45 (NovoLOG SUPPLEMENTAL SCALE) 1 ACHS SLIDING SCALE SQ 03/11/17 21:00 03/12/17 06:20 (K-Phos) 1,000 mg Q12HR PO 03/12/17 21:00 Assessment and Plan Assessment and Plan Urologic impression: #1 recent development mild left sided hydroureteronephrosis possibly secondary to recent stone passage now resolved #2 E. coli urinary tract infection related to recent left sided renal obstruction being managed with antibiotics Recommendations: #1 agree with present antibiotic and supportive therapy #2 no further intervention indicated #3 will be available as needed during present hospitalization Len Quiles MD Mar 12, 2017 10:58
--- NOTE | 2017-03-12 13:01 | HHI.IDPN ---
Subjective Subjective Remarks Patient is a 76-year-old female, presented to the hospital for further evaluation of fever. Patient for the last 2 days has had some lower abdominal pain, more so on the left side. She also has had constipation and attributes her problem with urination due to the constipation. She has had dysuria. She denies any hematuria, no previous history of kidney stone, no history of passing Gravel-like material in her urine. One day prior to admission she developed a fever. It persisted, and so the following day she presented to the hospital for further evaluation and treatment. Patient has been febrile up to 103. WBCs elevated. CT of the abdomen and pelvis showing abnormality in the left kidney with some mild hydronephrosis. Patient currently denies any further abdominal pain. She has a Shepard catheter in place. She has not had any respiratory symptoms, no nausea or vomiting. She has not had any bowel movement yet. Denies any back pain. 2 blood cultures done on admission are now reported as growing gram-negative samara. Notes reviewed Temps ok BP ok Having BM Repeat US no hydro No new (+) BC BC and UC with E coli WBC down to normal Creatinine normal at bedside - notes that patient is confused Antibiotics Cefepime Lines PIV Past Medical History Diabetes mellitus Hyperlipidemia Diabetic neuropathy History of gastritis. Past Surgical History Cholecystectomy Allergies: Coded Allergies: Influenza Virus Vaccines (Unverified Allergy, Severe, FLU LIKE REACTIO X 2 WEEKS, 03/09/17) aspirin (Unverified Allergy, Severe, STOMACH BROWN, 03/09/17) codeine (Unverified Allergy, Severe, VOMITS, 03/09/17) penicillin G (Unverified Allergy, Unknown, 03/09/17) Objective . Vital Signs Date Time Temp Pulse Resp B/P (MAP) Pulse Ox O2 Delivery O2 Flow Rate FiO2 03/12/17 12:00 99.0 70 18 119/50 (73) 96 03/12/17 09:33 97 Nasal Cannula 2.00 03/12/17 08:00 98.8 88 18 131/70 (90) 92 03/12/17 07:43 77 03/12/17 04:00 98.9 87 18 108/58 (75) 93 03/12/17 00:00 98.8 92 20 121/58 (79) 94 03/11/17 22:00 78 03/11/17 22:00 97 03/11/17 20:19 96 Nasal Cannula 2.00 03/11/17 20:10 98.1 87 18 116/77 (90) 98 03/11/17 20:00 87 03/11/17 20:00 99.5 87 25 116/60 (78) 97 03/11/17 18:00 98 03/11/17 16:00 98.7 97 28 132/69 (90) 95 03/11/17 16:00 98 03/11/17 14:00 98 . Laboratory Tests Test 03/11/17 04:00 03/12/17 05:58 White Blood Count 9.2 TH/MM3 8.8 TH/MM3 Red Blood Count 3.35 MIL/MM3 3.69 MIL/MM3 Hemoglobin 9.6 GM/DL 10.7 GM/DL Hematocrit 29.0 % 31.7 % Mean Corpuscular Volume 86.4 FL 85.8 FL Mean Corpuscular Hemoglobin 28.6 PG 28.9 PG Mean Corpuscular Hemoglobin Concent 33.1 % 33.6 % Red Cell Distribution Width 13.8 % 13.9 % Platelet Count 196 TH/MM3 245 TH/MM3 Mean Platelet Volume 7.7 FL 7.5 FL Neutrophils (%) (Auto) 78.6 % 74.2 % Lymphocytes (%) (Auto) 11.7 % 13.1 % Monocytes (%) (Auto) 9.2 % 12.1 % Eosinophils (%) (Auto) 0.3 % 0.3 % Basophils (%) (Auto) 0.2 % 0.3 % Neutrophils # (Auto) 7.2 TH/MM3 6.6 TH/MM3 Lymphocytes # (Auto) 1.1 TH/MM3 1.2 TH/MM3 Monocytes # (Auto) 0.8 TH/MM3 1.1 TH/MM3 Eosinophils # (Auto) 0.0 TH/MM3 0.0 TH/MM3 Basophils # (Auto) 0.0 TH/MM3 0.0 TH/MM3 CBC Comment DIFF FINAL DIFF FINAL Differential Comment Laboratory Tests Test 03/11/17 04:00 03/12/17 05:58 Blood Urea Nitrogen 13 MG/DL 10 MG/DL Creatinine 0.84 MG/DL 0.82 MG/DL Random Glucose 172 MG/DL 207 MG/DL Calcium Level 7.5 MG/DL 8.0 MG/DL Sodium Level 136 MEQ/L 138 MEQ/L Potassium Level 3.6 MEQ/L 3.5 MEQ/L Chloride Level 106 MEQ/L 106 MEQ/L Carbon Dioxide Level 23.8 MEQ/L 25.1 MEQ/L Anion Gap 6 MEQ/L 7 MEQ/L Estimat Glomerular Filtration Rate 66 ML/MIN 68 ML/MIN Phosphorus Level 0.6 MG/DL Magnesium Level 1.9 MG/DL Microbiology Date/Time Source Procedure Growth Status 03/10/17 17:52 Blood Peripheral Aerobic Blood Culture - Preliminary NO GROWTH IN 2 DAYS Resulted 03/10/17 17:52 Blood Peripheral Anaerobic Blood Culture - Preliminary NO GROWTH IN 2 DAYS Resulted 03/10/17 17:49 Blood Peripheral Aerobic Blood Culture - Preliminary NO GROWTH IN 2 DAYS Resulted 03/10/17 17:49 Blood Peripheral Anaerobic Blood Culture - Preliminary NO GROWTH IN 2 DAYS Resulted 03/10/17 11:35 Blood Peripheral Aerobic Blood Culture - Preliminary NO GROWTH IN 2 DAYS Resulted 03/10/17 11:35 Blood Peripheral Anaerobic Blood Culture - Preliminary NO GROWTH IN 2 DAYS Resulted 03/10/17 11:30 Blood Peripheral Aerobic Blood Culture - Preliminary NO GROWTH IN 2 DAYS Resulted 03/10/17 11:30 Blood Peripheral Anaerobic Blood Culture - Preliminary NO GROWTH IN 2 DAYS Resulted Imaging Last Impressions Chest X-Ray 03/09/17 0852 Signed Impressions: Service Date/Time: Thursday, March 09, 2017 08:53 - CONCLUSION: Minimal parenchymal changes left base. There is no pneumothorax. Tomer Nolasco MD FACR Abdomen/Pelvis CT 03/09/17 0611 Signed Impressions: Service Date/Time: Thursday, March 09, 2017 07:16 - CONCLUSION: 1. Acute inflammatory process involving the left kidney with hydronephrosis and mild hydroureter. I see no stones. Differential diagnostic considerations would include a recently passed stone versus pyelonephritis. Followup imaging to document resolution is suggested. 2. Colonic diverticulosis without acute inflammation. 3. Prior cholecystectomy. 4. Small calcified pleural plaque involving the left lung base. This can be seen in asbestos exposure. Sean Arzola Jr., MD Physical Exam GENERAL: awake and alert, not in respiratory distress. SKIN: Warm and dry. No generalized rash, no ecchymoses and no evidence of embolic lesions. EYES: [place] conjunctiva. No petechia or hemorrhage. No scleral icterus. No injection or drainage. EARS, NOSE AND THROAT: Nose without bleeding or purulent nasal discharge. Mucous membranes pink and moist. No oral lesions noted. NECK: Trachea midline. Supple and not tender, no meningeal signs CARDIOVASCULAR: Regular rate and rhythm. No murmurs, rubs or gallops heard RESPIRATORY: Clear to auscultation. Breath sounds equal bilaterally. No rales , wheezing or rhonchi ABDOMEN: Soft, globular, non-tender, mildly distended. Bowel sounds present and normoactive. No guarding. No rebound. No organomegaly. EXTREMITIES: No clubbing, cyanosis, or edema. No calf tenderness. Well perfused and warm. NEUROLOGICAL: Awake and alert. Cranial nerves grossly intact. Motor grossly within normal limits. PSYCHIATRIC: Normal affect, calm and cooperative. LINE: No evidence of infection : Shepard in place, urine looks clear Assessment & Plan Remarks IMPRESSION E coli sepsis due to complicated UTI (high fevers, leukocytosis, renal insufficiency, +BC) Pyelonephritis, has mild L hydro, ?passed stone Renal insufficiency, better Rash with PCN - tolerating Cephalosporins RECOMMENDATION Change to po Levaquin and give 14 days Monitor progress She is clinically stable from ID standpoint I will sign off Please reconsult if with any new ID issue or question Discussed plan with Elizabeth Faye MD Mar 12, 2017 13:01
[2017-03-12] MEDS: LEVOFLOXACIN 750 MG TAB PO SCH (14:17)
[2017-03-12] MEDS: POTASSIUM PHOSPHATE MONOBASIC 500 MG TAB PO SCH (21:00)
[2017-03-12] MEDS: PRAVASTATIN SOD 40 MG TAB PO SCH (21:56)
[2017-03-13 01:18] VITALS: BP 115/61; PULSE 102; RESP 18; TEMP 99; O2SAT 99
[2017-03-13] MEDS: RESP: ALBUTEROL 2.5 MG/IPRATROPIUM 0.5 MG NEB (SCH) INH ×2 (03:20→10:01)
[2017-03-13] MEDS: CHLORHEXIDINE GLUCONATE 2 % 1 PACK (2 CLOTHS) TOP SCH (04:00)
[2017-03-13] MEDS: INSULIN ASPART SUPPLEMENTAL SCALE SQ SCH ×2 (06:07→11:00)
[2017-03-13 06:10] VITALS: BP 150/68; PULSE 85; RESP 18; TEMP 97.5; O2SAT 96
[2017-03-13 07:50] LABS: BICARBONATE 25.1 MEQ/L (21.0-32.0); MAGNESIUM 1.8 MG/DL (1.5-2.5); POTASSIUM 3.5 MEQ/L (3.5-5.1)
[2017-03-13 08:00] VITALS: BP 143/64; PULSE 70; RESP 18; TEMP 98.3; O2SAT 98
[2017-03-13] MEDS ORDERED: K-PHTAB PO (09:10)
[2017-03-13] MEDS ORDERED: LEVA750T9 PO (09:10)
[2017-03-13] MEDS ORDERED: ZOLP5TAB3 PO (09:10)
[2017-03-13] MEDS ORDERED: ALPR0.5T3 PO (09:10)
--- NOTE | 2017-03-13 09:13 | HHI.DCPOC ---
Discharge Care Plan Diagnosis: (1) Septic shock (2) E coli bacteremia (3) UTI (urinary tract infection) (4) JASPER (acute kidney injury) (5) Hydronephrosis, left (6) Diabetes mellitus (7) Hypertension Goals to Promote Your Health * To prevent worsening of your condition and complications * To maintain your health at the optimal level Directions to Meet Your Goals Take your medications as prescribed Follow your dietary instruction Follow activity as directed Keep your appointments as scheduled Take your immunizations and boosters as scheduled If your symptoms worsen call your PCP, if no PCP go to Urgent Care Center or Emergency Room Smoking is Dangerous to Your Health. Avoid second hand smoke Call the 24-hour hour crisis hotline for domestic abuse at Angel Mak MD Mar 13, 2017 09:13
--- NOTE | 2017-03-13 09:17 | HHI.DS ---
Discharge Summary Admission Date Mar 09, 2017 at 10:51 Discharge Date: Mar 13, 2017 Admitting Diagnosis Septic shock (1) E coli bacteremia Diagnosis: Principal ICD Codes: R78.81 - Bacteremia (2) UTI (urinary tract infection) Diagnosis: Principal ICD Codes: N39.0 - Urinary tract infection, site not specified Status: Acute (3) Hydronephrosis, left Diagnosis: Principal ICD Codes: N13.30 - Unspecified hydronephrosis Status: Resolved (4) JASPER (acute kidney injury) Diagnosis: Principal ICD Codes: N17.9 - Acute kidney failure, unspecified Status: Resolved (5) Diabetes mellitus Diagnosis: Secondary ICD Codes: E11.9 - Type 2 diabetes mellitus without complications Status: Chronic (6) Hyperlipidemia Diagnosis: Secondary ICD Codes: E78.5 - Hyperlipidemia, unspecified Status: Chronic (7) Hypertension ICD Codes: I10 - Essential (primary) hypertension CBC/BMP: 03/12/17 0558 03/13/17 0600 Significant Findings Laboratory Tests Test 03/11/17 04:00 03/12/17 05:58 03/13/17 06:00 Red Blood Count 3.35 MIL/MM3 (4.00-5.30) 3.69 MIL/MM3 (4.00-5.30) Hemoglobin 9.6 GM/DL (11.6-15.3) 10.7 GM/DL (11.6-15.3) Hematocrit 29.0 % (35.0-46.0) 31.7 % (35.0-46.0) Neutrophils (%) (Auto) 78.6 % (16.0-70.0) 74.2 % (16.0-70.0) Monocytes (%) (Auto) 9.2 % (0.0-8.0) 12.1 % (0.0-8.0) Random Glucose 172 MG/DL (74-106) 207 MG/DL (74-106) 139 MG/DL (74-106) Calcium Level 7.5 MG/DL (8.5-10.1) 8.0 MG/DL (8.5-10.1) 7.9 MG/DL (8.5-10.1) Estimat Glomerular Filtration Rate 66 ML/MIN (>89) 68 ML/MIN (>89) 71 ML/MIN (>89) Monocytes # (Auto) 1.1 TH/MM3 (0-0.9) Phosphorus Level 0.6 MG/DL (2.5-4.9) 1.1 MG/DL (2.5-4.9) Hospital Course (1) E coli bacteremia ICD Codes: R78.81 - Bacteremia patient was initially in septic shock on arrival placed in ICU followed by lead oracle developer initially required blood pressure support with Levophed- but has improved and no longer requiring support Treated with Aztreonam while in ICU DC'd 03/11/17 ID assistance appreciated started Cefepime 03/11/17 03/09/17 Urine culture positive for E Coli 03/09/17 Blood culture positive for E Coli in 2/2 bottles repeat blood culture 03/10/17 NGTD convert to po abx per ID. complete 14 days with levaquin f/u pcp. pt will go to snf for PT. (2) UTI (urinary tract infection) ICD Codes: N39.0 - Urinary tract infection, site not specified Status: Acute Culture positive for E Coli see above (3) Hydronephrosis, left ICD Codes: N13.30 - Unspecified hydronephrosis Status: Resolved Initially patient with left hydronephrosis seen by Urology who recommended repeat renal US, ? passage of renal stone 03/11/17 repeat US showed hydronephrosis has resolved (4) JASPER (acute kidney injury) ICD Codes: N17.9 - Acute kidney failure, unspecified Status: Resolved resolved with IV fluids and suspected passage of renal stone (5) Diabetes mellitus ICD Codes: E11.9 - Type 2 diabetes mellitus without complications Status: Chronic Continue SSI coverage with accuchecks diabetic diet resume home meds (6) Hyperlipidemia ICD Codes: E78.5 - Hyperlipidemia, unspecified Status: Chronic continue home medication (7) Hypertension ICD Codes: I10 - Essential (primary) hypertension Plan: was hypotensive due to septic shock on Levophed has been off Levophed since 03/10 continue to monitor BP trend resumed home Lisinopril 5 mg Pt Condition on Discharge: Stable Discharge Disposition: Discharge to SNF Discharge Instructions DIET: Follow Instructions for: Diabetic Diet Activities you can perform: Regular-No Restrictions Follow up Referrals: PCP Follow-up - 2 Weeks with oscar stark New Medications: Levofloxacin (Levaquin) 750 Mg Tablet 750 MG PO DAILY for Infection, #12 TAB Potassium Phosphate Monobasic (K-Phos) 500 Mg Tab 500 MG PO Q12HR for supplement for 3 Days, TAB Changed Medications: Zolpidem (Zolpidem) 5 Mg Tab 5 MG PO HS PRN for INSOMNIA, #5 TAB 0 Refills (Changed from: 5-10 MG) Continued Medications: Alprazolam (Alprazolam) 0.5 Mg Tab 0.5 MG PO BID PRN for ANXIETY, #10 TAB 0 Refills (This prescription has been renewed) Glimepiride (Glimepiride) 2 Mg Tab 2 MG PO BIDAC for Blood Sugar Management, #60 TAB 0 Refills Linagliptin (Tradjenta) 5 Mg Tab 5 MG PO DAILY for Blood Sugar Management, #30 TAB 0 Refills Lisinopril (Lisinopril) 5 Mg Tab 5 MG PO DAILY for Blood Pressure Management, #30 TAB 0 Refills Metformin (Metformin) 500 Mg Tab 500 MG PO BIDPC for Blood Sugar Management, #60 TAB 0 Refills With meals Simvastatin (Simvastatin) 20 Mg Tab 20 MG PO HS for Cholesterol Management, #30 TAB 0 Refills Angel Mak MD Mar 13, 2017 09:17
[2017-03-13 10:03] VITALS: O2SAT 98
[2017-03-13 11:00] VITALS: PULSE 70
[2017-03-13] MEDS: PANTOPRAZOLE SODIUM 40 MG VIAL IV SCH (11:01)
[2017-03-13] MEDS: LISINOPRIL 5 MG TAB PO SCH (11:02)
[2017-03-13] MEDS: POTASSIUM PHOSPHATE MONOBASIC 500 MG TAB PO SCH (11:02)
[2017-03-13] MEDS: DOCUSATE SODIUM 50 MG/SENNA 8.6 MG TAB PO SCH (11:02)
[2017-03-13] MEDS: LEVOFLOXACIN 750 MG TAB PO SCH (11:02)
[2017-03-13] MEDS: metFORMIN HCL 500 MG TAB PO SCH (11:03)
[2017-03-13 12:00] VITALS: BP 114/61; PULSE 110; RESP 18; TEMP 97.8; O2SAT 94
[2017-03-13] MEDS: HEPARIN SODIUM - SQ 10,000 UNITS/ML VIAL SQ SCH ×2 (12:29)
== END 2017-03-13 13:19 | DRG 871 ==
LOC: NEPC 06:01 → NEDA 10:51 → HIMW 11:50 → N04B 03-11 21:34
PROVIDERS: ADMIT Internal Medicine Critical Care Medicine; ATTEND Internal Medicine Critical Care Medicine
PROC: 05HM33Z Insertion of Infusion Device into Right Internal Jugular Vein, Percutaneous Approach (ICD-10-PCS; principal; 2017-03-09)
DX: A41.51 Sepsis due to Escherichia coli [E. coli] (principal); R65.21 Severe sepsis with septic shock; N17.9 Acute kidney failure, unspecified; I95.9 Hypotension, unspecified; E11.40 Type 2 diabetes mellitus with diabetic neuropathy, unspecified; N13.6 Pyonephrosis; K57.30 Diverticulosis of large intestine without perforation or abscess without bleeding; I10 Essential (primary) hypertension; B96.20 Unspecified Escherichia coli [E. coli] as the cause of diseases classified elsewhere; Z79.84 Long term (current) use of oral hypoglycemic drugs; F17.210 Nicotine dependence, cigarettes, uncomplicated; Z88.0 Allergy status to penicillin; F41.9 Anxiety disorder, unspecified; H91.90 Unspecified hearing loss, unspecified ear; E78.5 Hyperlipidemia, unspecified; K59.00 Constipation, unspecified; Z87.440 Personal history of urinary (tract) infections; Z87.442 Personal history of urinary calculi
CPT/HCPCS: 36556; 51702; 71010; 74177; 76775; 80048; 80053; 81001; 82948; 83605; 83690; 83735; 84100; 85025; 85610; 85730; 87040; 87077; 87086; 87186; 87205; 87641; 93005; 94640; 96360; 96365; 96366; 96367; 96368; 96375; C9113; J0692; J1580; J1644; J1815; J2405; J3370; J7030; J7050; Q9967

== ENCOUNTER 2017-04-12 12:50 | Day surgery (SDC) | payer MEDICARE ==
[~2017-04-12 12:50] MED LIST changes: -ALPR-138 PO; +ALPR0.5T3 PO; -AMAR2TAB PO; -CARA1SUS3 PO; -ENAL5TAB98 PO; -FLUO20SO3 PO; +GLIM2TAB PO; +K-PHTAB PO; +LEVA750T9 PO; +LISI-519 PO; -LORT5TAB PO; +METF500T PO; -METO5TAB PO; -PREV30CA36 PO; +SIMV20TA PO; -SITA100 PO; +TRAD5TAB PO; -VIST50CA PO; -ZOCO80TA PO; +ZOLP5TAB3 PO
[2017-04-12 13:10] VITALS: BP 120/70; PULSE 96; RESP 16; TEMP 97.9
[2017-04-12 14:05] VITALS: BP 111/63; PULSE 105; RESP 18; TEMP 98.2; O2SAT 93
--- NOTE | 2017-04-12 14:54 | RADRPT ---
EXAM DATE/TIME: 04/12/2017 13:36 [place] COMPARISON: No previous studies available for comparison. INDICATIONS : Patient presents with urinary tract infection in need of peripheral intravenous line placement for an tibiotic administration. MEDICAL HISTORY : GERD HTN Gastritis Diverticulitis UTI Sepsis Anxiety DM Neuropathy IBS Emphysema SURGICAL HISTORY : Eufemia ENCOUNTER: Initial ACUITY: 1 month PAIN SCORE: 0/10 LOCATION: N/A FLUORO TIME: 0.4 minutes IMAGE SERIES: 1 ACCESS: Right basilic vein MEDICATION(S): 1.) 200 units Heparin IV DEVICE(S): 1.) 4 [place] single lumen 38 cm Xcela Power PICC PROCEDURE : 1. Ultrasound guidance for venous catheterization. 2. Fluoroscopic guidance. 3. Ultrasound & fluoroscopic guided central venous Power PICC line placement. The risks, benefits and alternatives to the procedure were explained and verbal and written consent w as obtained. The site was prepped in sterile fashion. Full sterile technique was used, including ca p, mask, sterile gloves and gown and a large sterile sheet. Hand hygiene and 2% chlorhexidine prep w as utilized per protocol for cutaneous antisepsis with appropriate dry time for site. Sterile gel a nd sterile probe cover were utilized for ultrasound guidance. The skin and subcutaneous tissues wer e infiltrated with local anesthetic solution. Under direct ultrasound guidance, a suitable vein was accessed and a measuring guidewire was introduc ed and positioned in the central venous system. The ultrasound images depicting access guidance were saved and stored to PACS for permanent record. A Power Injectable PICC line was cut to prescribed length and introduced, positioned with tip at the cavoatrial junction level. The line was flushed and secured per protocol. CONCLUSION: 1. Uncomplicated central venous Power PICC line placement. 2. The PICC line can be used immediately. William Girard MD on April 12, 2017 at 14:53 Board Certified Radiologist. This report was verified electronically.
== END 2017-04-12 14:32 | disposition home or self-care (01) ==
LOC: HROP 12:50 → HRIP 12:51 → HROP 14:32
PROVIDERS: ATTEND Family Medicine
DX: N39.0 Urinary tract infection, site not specified (principal); I10 Essential (primary) hypertension; E11.9 Type 2 diabetes mellitus without complications; G62.9 Polyneuropathy, unspecified; K57.92 Diverticulitis of intestine, part unspecified, without perforation or abscess without bleeding; K29.70 Gastritis, unspecified, without bleeding; J43.9 Emphysema, unspecified; K21.9 Gastro-esophageal reflux disease without esophagitis; E78.5 Hyperlipidemia, unspecified
CPT/HCPCS: 36569; 76937; 77001; C1751; J1642